=== PATIENT | female | born 1950 | race Caucasian/White ===

== ENCOUNTER 2017-09-16 12:50 | Day surgery (SDC) | payer MEDICARE, OTHER, SELFPAY ==
[2017-09-16] VITALS (7 sets, daily range): BP systolic 110–126; BP diastolic 58–79; PULSE 70–81; RESP 14–16; TEMP 36–36.9; O2SAT 92–98; BMI 35.5
--- NOTE | 2017-09-16 | PATH_ITS ---
[facility] Accession Number: [id number] . 01 Material submitted: . PART A: COLON POLYP AT 40CM PART B: COLON POLYP AT 70CM PART C: COLON POLYP AT 60CM PART D: COLON POLYP AT 65CM . 02 Diagnosis: A. Colon Polyp at 40 cm: Tubular adenoma. . B. Colon Polyp at 70 cm: Tubular adenoma. . C. Colon Polyp at 60 cm: Colonic mucosa with prominent benign lymphoid aggregate. Negative for serrated lesion, dysplasia or malignancy. . D. Colon Polyp at 65 cm: Tubular adenoma. MRV/09/18/2017 . 02 Electronically signed: . Oh Mike MD, PhD, Pathologist NPI- [id number] . 01 Gross description: . Part A: COLON POLYP AT 40CM: Received in formalin are 2 fragment(s) of fink, soft tissue measuring 0.4 x 0.3 x 0.2 cm to 0.3 x 0.3 x 0.1 cm submitted entirely in 1 cassette(s) Part B: COLON POLYP AT 70CM: Received in formalin is 1 fragment(s) of fink, soft tissue measuring 0.4 x 0.3 x 0.2 cm submitted entirely in 1 cassette(s) Part C: COLON POLYP AT 60CM: Received in formalin are 2 fragment(s) of fink, soft tissue measuring 1.1 x 0.2 x 0.1 cm to 0.5 x 0.3 x 0.1 cm submitted entirely in 1 cassette(s) Part D: COLON POLYP AT 65CM: Received in formalin is 1 fragment(s) of fink, soft tissue measuring 0.3 x 0.3 x 0.2 cm submitted entirely in 1 cassette(s) /TRC /TRC . 02 Pathologist provided ICD-10: D12.6, K63.5 . 02 CPT . 187124, 158459, [id number], [id number] Performed at: 01 [facility] [address] [id number] MD Per Choudhury MD Phone: [phone] Performed at: 02 [facility] [address] [place], [place] [id number] MD Savage Hodge MD Phone: [phone]
[2017-09-16] MEDS: SODIUM CHLORIDE 0.9% 1,000 ML 200 ML IV (13:12)
--- NOTE | 2017-09-16 14:08 | PM.HP.1 ---
History of Present Illness Date Patient Seen: 09/16/17 Time Patient Seen: 14:08 Chief complaint: colonoscopy [id number] Narrative: Katherine is a wonderful 67-year-old lady with a personal history of colon cancer arising in a tubulovillous adenoma in 2014. She had a repeat endoscopy in 2016 that did not show any regrowth of the polyp. She did not elect to undergo colectomy as there was no invasive cancer or dysplasia at the cauterized edge of the stalk. We have been performing close surveillance of this area and she is scheduled for the same today. She reports she is feeling well. 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 She denies any problems or symptoms related to the function of her GI tract. Patient History Surgical History History of cataract removal with insertion of prosthetic lens History of thyroidectomy History of tonsillectomy Status post dilation and curettage Status post knee surgery Status post laparoscopy Status post tubal ligation Family & Social History Social History: household members spouse Meds Home Medications Medication Instructions Recorded Confirmed Type acetaminophen 500 mg PO QID #0 02/17/16 History acyclovir [Zovirax] 1 liliana TP #0 02/17/16 History alendronate [Fosamax] 70 mg PO QWEEK #0 02/17/16 History avdsptmpya-iedmsuqdqxhrl-iuuo 1 cap PO PRN PRN #0 02/17/16 History calcium citrate-vitamin D3 1 tab PO #0 02/17/16 History [Citracal + D Maximum] capsaicin [Theragen] 1 liliana TOPICAL #0 02/17/16 History cholecalciferol (vitamin D3) 1 tab PO QDAY #0 02/17/16 History [Vitamin D3] hydrocodone-acetaminophen 1 tab PO Q6HP PRN #0 02/17/16 History ibuprofen 800 mg PO TIDP PRN #0 02/17/16 History lidocaine HCl 1 liliana TOPICAL #0 02/17/16 History valacyclovir 500 mg PO #0 02/17/16 History Effexor XR 375 mg PO DAILY 09/16/17 09/16/17 History alprazolam [Xanax] 0.5 mg PO 09/16/17 History clopidogrel [Plavix] 75 mg PO DAILY 09/16/17 09/16/17 History cyclosporine [Restasis] 0.5 mg EYE-BOTH DAILY 09/16/17 09/16/17 History esomeprazole magnesium [Nexium] 40 mg PO DAILY 09/16/17 09/16/17 History levothyroxine [Synthroid] 137 mcg PO DAILY 09/16/17 09/16/17 History verapamil 180 mg PO DAILY 09/16/17 09/16/17 History Allergies Allergy/AdvReac Type Severity Reaction Status Date / Time erythromycin base Allergy Mild STOMACH Unverified 07/23/17 12:32 [ERYTHROMYCIN BASE] UPSET Review of Systems Review of Systems All systems reviewed & are unremarkable except as noted in HPI and below Exam Vital Signs (past 8 hours): Vital Signs - 8 hr 09/16/17 13:13 Temperature 98.5 F Pulse Rate 81 Respiratory Rate 15 Blood Pressure 126/76 H Pulse Oximetry 98 Pulse Oximetry 98 Oxygen Delivery Method Room Air Narrative Exam Narrative: Very pleasant lady in no distress. She is blind. HEENT: Normocephalic and atraumatic. Anicteric sclera Lungs: Clear to auscultation bilaterally Heart: Regular rate and rhythm without murmur Abdomen: Soft, nontender, active bowel sounds. Extremities: Warm and well-perfused and without edema Assessment & Plan Plan: Assessment/Plan Narrative: Dorinda 67-year-old lady with a personal history of adenocarcinoma arising in a tubulovillous adenoma at 25 cm from the anal verge. We discussed once again the risks and benefits of colonoscopy and the patient expressed desire to have the procedure.
--- NOTE | 2017-09-16 14:12 | P.HP_ITS ---
History of Present Illness Date Patient Seen: 09/16/17 Time Patient Seen: 14:08 Chief complaint: colonoscopy [id number] Narrative: Katherine is a wonderful 67-year-old lady with a personal history of colon cancer arising in a tubulovillous adenoma in 2014. She had a repeat endoscopy in 2016 that did not show any regrowth of the polyp. She did not elect to undergo colectomy as there was no invasive cancer or dysplasia at the cauterized edge of the stalk. We have been performing close surveillance of this area and she is scheduled for the same today. She reports she is feeling well. 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 She denies any problems or symptoms related to the function of her GI tract. Patient History Surgical History History of cataract removal with insertion of prosthetic lens History of thyroidectomy History of tonsillectomy Status post dilation and curettage Status post knee surgery Status post laparoscopy Status post tubal ligation Family & Social History Social History: household members spouse Meds Home Medications Medication Instructions Recorded Confirmed Type acetaminophen 500 mg PO QID #0 02/17/16 History acyclovir [Zovirax] 1 liliana TP #0 02/17/16 History alendronate [Fosamax] 70 mg PO QWEEK #0 02/17/16 History esxwdhyelr-zptzuaswktpxg-soik 1 cap PO PRN PRN #0 02/17/16 History calcium citrate-vitamin D3 1 tab PO #0 02/17/16 History [Citracal + D Maximum] capsaicin [Theragen] 1 liliana TOPICAL #0 02/17/16 History cholecalciferol (vitamin D3) 1 tab PO QDAY #0 02/17/16 History [Vitamin D3] hydrocodone-acetaminophen 1 tab PO Q6HP PRN #0 02/17/16 History ibuprofen 800 mg PO TIDP PRN #0 02/17/16 History lidocaine HCl 1 liliana TOPICAL #0 02/17/16 History valacyclovir 500 mg PO #0 02/17/16 History Effexor XR 375 mg PO DAILY 09/16/17 09/16/17 History alprazolam [Xanax] 0.5 mg PO 09/16/17 History clopidogrel [Plavix] 75 mg PO DAILY 09/16/17 09/16/17 History cyclosporine [Restasis] 0.5 mg EYE-BOTH DAILY 09/16/17 09/16/17 History esomeprazole magnesium [Nexium] 40 mg PO DAILY 09/16/17 09/16/17 History levothyroxine [Synthroid] 137 mcg PO DAILY 09/16/17 09/16/17 History verapamil 180 mg PO DAILY 09/16/17 09/16/17 History Allergies Allergy/AdvReac Type Severity Reaction Status Date / Time erythromycin base Allergy Mild STOMACH Unverified 07/23/17 12:32 [ERYTHROMYCIN BASE] UPSET Review of Systems Review of Systems All systems reviewed & are unremarkable except as noted in HPI and below Exam Vital Signs (past 8 hours): Vital Signs - 8 hr 3 09/16/17 13:13 Temperature 98.5 F Pulse Rate 81 Respiratory Rate 15 Blood Pressure 126/76 H Pulse Oximetry 98 Pulse Oximetry 98 Oxygen Delivery Method Room Air Narrative Exam Narrative: Very pleasant lady in no distress. She is blind. HEENT: Normocephalic and atraumatic. Anicteric sclera Lungs: Clear to auscultation bilaterally Heart: Regular rate and rhythm without murmur Abdomen: Soft, nontender, active bowel sounds. Extremities: Warm and well-perfused and without edema Assessment & Plan Plan: Assessment/Plan Narrative: Dorinda 67-year-old lady with a personal history of adenocarcinoma arising in a tubulovillous adenoma at 25 cm from the anal verge. We discussed once again the risks and benefits of colonoscopy and the patient expressed desire to have the procedure.
--- NOTE | 2017-09-16 14:13 | SUR.OPER ---
to endo from opd via cart respirations unlabored iv patent positioned per self for procedure
--- NOTE | 2017-09-16 14:58 | PM.OP.1 ---
Operative Date/Time/Diagnoses - Date of procedure: 09/16/17 Time of procedure: 14:58 Pre-op diagnosis: Personal history of malignancy arising in a tubulovillous adenoma at 25 cm from the anal verge Personal history of other colon polyps Post-op diagnosis: same Procedure & Clinicians Procedure: Colonoscopy to the cecum with polypectomy x4 Same procedure as scheduled: Yes Indications: Last colonoscopy 2015 for surveillance of large polyp at 25 cm. Surgeon: Deidra Chaidez Click Yes if Unassisted: Yes Anesthesia Type: Sedation (Versed 11 mg; fentanyl 300 mcg) Operative Notes Findings: 1. Excellent prep 2. Multiple small sessile polyps removed with Jumbo cold forceps. Polyps were at 65 cm, 40 cm, 70 cm, and 60 cm respectively. All were less than 5 mm 3. Diverticulosis limited to the junction of the descending and sigmoid colons 4. Type 2 at 25 cm is no longer visible. Mucosa at this region and throughout the colon is normal in appearance with the exception of the 4 polyps removed. 5. Grade 1 internal hemorrhoids Closure Type: not applicable Specimen(s): other (See list) Estimated Blood Loss (mL): 5 Blood products transfused: none Procedure in detail: After obtaining informed consent, the patient was brought to the GI suite and placed in the left lateral decubitus position on the examination table. After placement of appropriate monitors, the patient was given incremental doses of Versed and Fentanyl until an appropriate level of sedation was achieved. A time out was held per SCOAP protocol. A digital rectal examination was performed and did not reveal any masses or obstructing lesions. The colonoscope was gently passed into the patient's anus and the entire colon navigated to the level of the cecum with minimal difficulty. Once in the cecum, the scope was withdrawn being sure to go before and beyond all mucosal folds and prominences and get an excellent examination. The findings are noted above. At the level of the rectal vault, the scope was retroflexed and the internal anal canal was examined. The scope was straightened and air aspirated from the colon. The instrument was removed from the patient's body and the procedure was concluded. The patient was allowed to awaken from sedation without difficulty and taken to the post-anesthesia care unit in good condition. Total sedation time 32 min Total withdrawal time 20 min Complications: none Condition: stable Disposition: PACU Plan for aftercare: 1. Discharge to home 2. Plan for next colonoscopy in 2 years due to the number and size of polyps together with the patient's history of adenocarcinoma arising in a polyp
[2017-09-16] MEDS: fentaNYL 250 MCG/5 ML INJ 300 MCG IV (15:00)
[2017-09-16] MEDS: MIDAZOLAM 5 MG/5 ML VIAL 11 MG IV (15:01)
--- NOTE | 2017-09-16 15:24 | SUR.PHASEI ---
An intoxicated like affect in PACU. Smiling and singing.
== END 2017-09-16 16:10 | disposition home or self-care (01) ==
PROVIDERS: Visit Provider Surgery
PROC: 0DJD8ZZ Inspection of Lower Intestinal Tract, Via Natural or Artificial Opening Endoscopic (ICD-10-PCS; CPT 45378; principal; 2017-09-16 14:00)
DX: K57.30 Diverticulosis of large intestine without perforation or abscess without bleeding (principal); K64.0 First degree hemorrhoids; D12.6 Benign neoplasm of colon, unspecified; K63.5 Polyp of colon
CPT/HCPCS: 45380; 88305; 99152; 99153; J2250; J3010

== ENCOUNTER → 2018-01-07 09:53 | Outpatient (CLI) | payer MEDICARE, OTHER, SELFPAY ==
--- NOTE | 2018-01-07 | DI.MRI.S_ITS ---
PROCEDURE: MR KNEE LT WO CON INDICATIONS: INTERNAL DERANGEMENT OF LEFT KNEE TECHNIQUE: Noncontrast sagittal PD fast spin echo and T2 fast spin echo with fat saturation, sagittal 3-D FLASH with fat saturation; coronal T1 spin echo and PD fast spin echo with fat saturation, and axial PD fast spin echo with fat saturation through the knee. COMPARISON: None. FINDINGS: Image quality: Excellent. Menisci: Medial meniscal tear involving the posterior horn and body with extension to the undersurface. There is mild partial extrusion of the medial meniscal body. Lateral meniscus appears intact. Cruciate ligaments: The anterior and posterior cruciate ligaments appear intact. Medial structures: The medial collateral ligament appears intact. The posterior oblique ligament, semimembranosus tendon insertions, oblique popliteal ligament, and meniscocapsular junction appear intact. Visualized portions of the pes anserinus tendons appear normal. No abnormal bursal fluid. Lateral structures: The lateral collateral ligament, long and short heads of the biceps femoris tendon appear intact. The popliteus tendon appears normal; the popliteofibular ligament appears intact. The posterosuperior and anteroinferior popliteomeniscal fascicles appear intact. The arcuate and fabellofibular ligaments appear intact, on either side of the lateral inferior geniculate artery. Iliotibial band appears normal. Anterior structures: The quadriceps and patellar tendons appear intact. There is extensive infrapatellar subcutaneous soft tissue edema Patellar alignment is normal. No femoral trochlear dysplasia or ventral trochlear prominence. No edema in the infrapatellar fat pad. Bones and cartilage: No bone marrow contusions or fractures. Within the medial compartment, the articular cartilage appears grossly intact. Within the lateral compartment, there is diffuse mild partial thickness loss of the femoral cartilage without focal defect. Within the patellofemoral compartment, there is near full thickness denudation of the patellar articular cartilage rarely over the median patellar ridge and medial facet. There is diffuse partial thickness loss of the femoral trochlear cartilage. Joint space: There is physiologic knee joint fluid. No Alfaro's cyst. IMPRESSION: Medial meniscal tear of the posterior horn and body with partial extrusion. Degenerative joint disease, most pronounced within the patellofemoral compartment as above. Extensive infrapatellar subcutaneous soft tissue edema. Dictated by: Yadiel Donahue M.D. on 01/07/2018 at 13:08 Approved by: Yadiel Donahue M.D. on 01/07/2018 at 13:19
== END ==
PROVIDERS: Visit Provider Orthopaedic Surgery
DX: S83.242A Other tear of medial meniscus, current injury, left knee, initial encounter (principal); M17.12 Unilateral primary osteoarthritis, left knee; M79.89 Other specified soft tissue disorders
CPT/HCPCS: 73721

== ENCOUNTER → 2018-01-13 14:45 | Outpatient (CLI) | payer MEDICARE, OTHER, SELFPAY | PROVIDERS: Visit Provider Orthopaedic Surgery | DX: S83.242A Other tear of medial meniscus, current injury, left knee, initial encounter (principal); Z01.818 Encounter for other preprocedural examination | CPT/HCPCS: 93005 ==

== ENCOUNTER 2018-01-26 14:16 | Day surgery (SDC) | payer MEDICARE, OTHER, SELFPAY ==
[2018-01-21 13:16] VITALS: BMI 33.8
[2018-01-26] VITALS (9 sets, daily range): BP systolic 113–143; BP diastolic 56–82; PULSE 70–96; RESP 12–16; TEMP 36.2–36.6; O2SAT 88–98; BMI 34.9
--- NOTE | 2018-01-26 14:55 | PM.PREOP ---
Pre-operative Note Interval Note Pre-op Check: Yes History & Physical Reviewed by Physician Changes: No
[2018-01-26] MEDS: LACTATED RINGERS 1,000 ML 42 ML IV (15:08)
--- NOTE | 2018-01-26 15:35 | SUR.OPER ---
Supine on padded OR bed, head on pillow, arms secured on padded arm boards at <90 degrees abduction, legs uncrossed, safety belt at abdomen, tape over blanket over right lower leg. Left lower leg with lateral stress post at thigh and under control of surgeon
[2018-01-26] MEDS: BUPIVACAINE 0.5% W/ EPI (PF) VIAL 30 ML INJ (15:42)
--- NOTE | 2018-01-26 16:01 | PM.OP.1 ---
Operative Date/Time/Diagnoses Date of procedure: 01/26/18 Time of procedure: 16:01 Pre-op diagnosis: Medial meniscus tear left knee Post-op diagnosis: same Procedure & Clinicians Procedure: Left knee arthroscopy with partial medial and lateral meniscectomy (CPT code 57622) and partial synovectomy/excision of plica (CPT code 83413) Same procedure as scheduled: Yes Indications: 67-year-old female with left knee pain consistent with internal derangement as suggested by history and consistent with physical exam as well as MRI findings. Discussed nature condition, differential diagnosis, potential treatment options, risks, and benefits. Patient elected proceed with arthroscopy and gives informed consent. Surgeon: Thomas Fajardo Click Yes if Unassisted: Yes Anesthesia Type: General Operative Notes Findings: Grade 2-3 chondromalacic changes of the patellar and trochlear surfaces without specific chondral lesion. Hypertrophic synovial plica in the medial suprapatellar articulation. Femoral and tibial articular surfaces are relatively normal with minimal softening. Small flap tear of the posterior horn of the lateral meniscus and complex tear of the posterior horn of the medial meniscus. Closure Type: primary Specimen(s): none sent Estimated Blood Loss (mL): 0 Procedure in detail: Patient brought to the operating room and placed supine on the operating table. After satisfactory induction of a general anesthetic, the left lower extremity is prepped and draped in the usual sterile fashion. Medial and lateral parapatellar portals created after infiltrating with Marcaine and epinephrine. Arthroscope introduced through the lateral parapatellar portal and arthroscopic examination was performed with the above-noted findings. Partial medial and lateral meniscectomies performed using combination basket forceps and shaver back to smooth and stable rim. Hypertrophic synovial plica and debrided with the shaver back to normal-appearing synovium. Knee was then irrigated and drained. The wounds were closed with Steri-Strips. The knee was then infiltrated with Marcaine. Sterile dressings applied, as the anesthetic terminated, and the patient was taken to postanesthetic recovery in satisfactory condition. Complications: none Condition: stable Disposition: PACU Plan for aftercare: Routine postoperative care and discharge home when stable. Follow up in orthopedic clinic in 2 weeks. Patient may be weight-bearing as tolerated.
--- NOTE | 2018-01-26 16:07 | P.OP_ITS ---
Operative Date/Time/Diagnoses Date of procedure: 01/26/18 Time of procedure: 16:01 Pre-op diagnosis: Medial meniscus tear left knee Post-op diagnosis: same Procedure & Clinicians Procedure: Left knee arthroscopy with partial medial and lateral meniscectomy ( CPT code 01054) and partial synovectomy/excision of plica (CPT code 18465) Same procedure as scheduled: Yes Indications: 67-year-old female with left knee pain consistent with internal derangement as suggested by history and consistent with physical exam as well as MRI findings. Discussed nature condition, differential diagnosis, potential treatment options, risks, and benefits. Patient elected proceed with arthroscopy and gives informed consent. Surgeon: Thomas Fajardo Click Yes if Unassisted: Yes Anesthesia Type: General Operative Notes Findings: Grade 2-3 chondromalacic changes of the patellar and trochlear surfaces without specific chondral lesion. Hypertrophic synovial plica in the medial suprapatellar articulation. Femoral and tibial articular surfaces are relatively normal with minimal softening. Small flap tear of the posterior horn of the lateral meniscus and complex tear of the posterior horn of the medial meniscus. Closure Type: primary Specimen(s): none sent Estimated Blood Loss (mL): 0 Procedure in detail: Patient brought to the operating room and placed supine on the operating table. After satisfactory induction of a general anesthetic, the left lower extremity is prepped and draped in the usual sterile fashion. Medial and lateral parapatellar portals created after infiltrating with Marcaine and epinephrine. Arthroscope introduced through the lateral parapatellar portal and arthroscopic examination was performed with the above-noted findings. Partial medial and lateral meniscectomies performed using combination basket forceps and shaver back to smooth and stable rim. Hypertrophic synovial plica and debrided with the shaver back to normal-appearing synovium. Knee was then irrigated and drained. The wounds were closed with Steri-Strips. The knee was then infiltrated with Marcaine. Sterile dressings applied, as the anesthetic terminated, and the patient was taken to postanesthetic recovery in satisfactory condition. Complications: none Condition: stable Disposition: PACU Plan for aftercare: Routine postoperative care and discharge home when stable. Follow up in orthopedic clinic in 2 weeks. Patient may be weight-bearing as tolerated.
--- NOTE | 2018-01-26 16:37 | SUR.PHASEII ---
Dr Messina called re: c/o chest tightness. Touching/pushing on chest increases sensation. Sats remain in 92-95% range. 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 12 Lead ordered to be reviewed versus most recent [address] Huitron will read.
--- NOTE | 2018-01-26 16:41 | SUR.PHASEII ---
Addendum to previous note: No pain reported to knee when asked.
--- NOTE | 2018-01-26 17:12 | SUR.PHASEII ---
Dr Weinstein has reviewed the old (01/13/18) and current 12 lead EKG and has given order that it is okay to discharge home. Patient is desiring such. is Very supportive of care.
== END 2018-01-26 17:25 | disposition home or self-care (01) ==
PROVIDERS: PCP Internal Medicine; Visit Provider Orthopaedic Surgery
PROC: (CPT 29870; principal; 2018-01-26 15:45)
DX: S83.232A Complex tear of medial meniscus, current injury, left knee, initial encounter (principal); S83.282A Other tear of lateral meniscus, current injury, left knee, initial encounter; M67.52 Plica syndrome, left knee; M17.12 Unilateral primary osteoarthritis, left knee; J45.909 Unspecified asthma, uncomplicated; R00.2 Palpitations; Z86.73 Personal history of transient ischemic attack (TIA), and cerebral infarction without residual deficits; Z86.718 Personal history of other venous thrombosis and embolism; E66.9 Obesity, unspecified; Z68.34 Body mass index [BMI] 34.0-34.9, adult; H54.8 Legal blindness, as defined in USA; E78.00 Pure hypercholesterolemia, unspecified; E03.9 Hypothyroidism, unspecified; I67.89 Other cerebrovascular disease; F32.9 Major depressive disorder, single episode, unspecified; R00.1 Bradycardia, unspecified; M22.42 Chondromalacia patellae, left knee
CPT/HCPCS: 29880; 93005; J1100; J2250; J2405; J2704; J3010

== ENCOUNTER 2018-01-31 09:47 | Emergency (ER) | payer MEDICARE, OTHER, SELFPAY ==
[2018-01-31] VITALS (7 sets, daily range): BP systolic 101–127; BP diastolic 58–64; PULSE 64–75; RESP 11–16; TEMP 36.7–36.9; O2SAT 95–100
--- NOTE | 2018-01-31 10:06 | ED_ITS ---
HPI - SOB/Dyspnea General Chief Complaint: Shortness of Breath/Dyspnea Stated Complaint: SWOLLEN RIB/HARD TO BREATHE Time Seen by Provider: 01/31/18 10:02 Source: patient and family Mode of arrival: ambulatory Limitations: no limitations History of Present Illness 67-year-old female here for evaluation of left-sided chest pain. Patient states that it started last evening. States is located under left breast. States it gets worse with movement and palpation taking big deep breath. No trauma. She states she does feel like there is a lump over the area. She recently had a left knee arthroscopy. She does have pain medication at home for this. No fevers. She does have a history of blood clots. Related Data Home Medications Medication Instructions Recorded Confirmed acetaminophen 500 mg PO QID #0 02/17/16 acyclovir [Zovirax] 1 liliana TP #0 02/17/16 alendronate [Fosamax] 70 mg PO QWEEK #0 02/17/16 [id number] 1 cap PO PRN PRN #0 02/17/16 calcium citrate-vitamin D3 1 tab PO #0 02/17/16 [Citracal + D Maximum] capsaicin [Theragen] 1 liliana TOPICAL #0 02/17/16 hydrocodone-acetaminophen 1 tab PO Q6HP PRN #0 02/17/16 01/21/18 ibuprofen 800 mg PO TIDP PRN #0 02/17/16 lidocaine HCl 1 liliana TOPICAL #0 02/17/16 valacyclovir 500 mg PO #0 02/17/16 alprazolam [Xanax] 0.5 mg PO BID 09/16/17 01/21/18 clopidogrel [Plavix] 75 mg PO DAILY 09/16/17 01/26/18 cyclosporine [Restasis] 1 drp EYE-BOTH DAILY 09/16/17 01/21/18 esomeprazole magnesium [Nexium] 40 mg PO DAILY 09/16/17 01/21/18 levothyroxine [Synthroid] 137 mcg PO DAILY 09/16/17 01/21/18 verapamil 180 mg PO DAILY 09/16/17 01/21/18 albuterol sulfate 2 puff INHALATION Q4H PRN 01/21/18 01/21/18 atorvastatin 40 mg PO DAILY 01/21/18 01/21/18 cholecalciferol (vitamin D3) 2,000 units 01/21/18 [Vitamin D3] clotrimazole-betamethasone 1 applic TOPICAL BID 01/21/18 01/21/18 doxycycline hyclate 100 mg PO Q12H 01/21/18 01/21/18 nystatin 01/21/18 omeprazole 40 mg PO DAILY 01/21/18 01/21/18 terbinafine HCl 250 mg PO DAILY 01/21/18 01/21/18 venlafaxine 37.5 mg PO DAILY 01/21/18 01/21/18 Previous Rx's Medication Instructions Recorded hydrocodone-acetaminophen [Vicodin] 1 tab PO Q4-6H PRN #30 tab 01/26/18 Allergies Allergy/AdvReac Type Severity Reaction Status Date / Time erythromycin base Allergy Mild STOMACH Verified 01/26/18 15:12 [ERYTHROMYCIN BASE] UPSET doxycycline AdvReac Unknown Dizziness, Verified 01/21/18 13:27 headache levofloxacin AdvReac Unknown Tendonitis Verified 01/21/18 13:27 Review of Systems Constitutional Denies fatigue, Denies fever(s) and Denies headache(s) ENT Ears, Nose, Mouth, and Throat: Denies dizziness and Denies headache(s) Cardiovascular Reports chest pain, Denies edema, Denies irregular heart rhythm and Denies palpitations Respiratory Denies cough Comments: Pain in the left chest with taking deep breaths Gastrointestinal Gastrointestinal: Denies abdominal pain, Denies nausea and Denies vomiting Genitourinary Denies dysuria Integumentary/Breasts Denies lesions and Denies rash Neurologic Denies confusion, Denies dizziness and Denies headache(s) Psychiatric Denies confusion Endocrine Denies fatigue and Denies palpitations Hematologic/Lymphatic Denies easy bleeding and Denies easy bruising FOR[facility], LAT[facility] Medical History Acute medial meniscus tear of left knee (Acute) Age-related osteoporosis without current pathological fracture (Acute) Anxiety disorder, unspecified (Acute) Asthma (Acute) Brain tumor (Acute) Candidiasis, unspecified (Acute) Cellulitis of groin (Acute ~09/2016) Chest pressure (Acute) DVT of axillary vein, acute bilateral (Acute ~2013) Dry eye syndrome of unspecified lacrimal gland (Acute) Essential hypertension (Acute) Failed total hip arthroplasty (Acute) GERD with esophagitis (Acute) Glaucoma, right eye (Acute) Herpes simplex (Acute) History of chest pain (Acute) History of colitis (Acute) History of concussion (Acute) Hypertension (Acute) Hypothyroidism (Acute) Keratoconjunctivitis sicca not specified as Sjogren's (Acute) Knee pain, left (Acute) Legal blindness, as defined in [place] (Acute) Major depressive disorder, single episode (Acute) Malignant neoplasm of colon, unspecified (Acute) Migraine with aura, not intractable, without status migrainosus (Acute) Mitral valve prolapse (Acute) Obesity (Acute) Osteoarthritis (Acute) Osteopenia (Acute) Other cerebrovascular disease (Acute) Other pneumonia, unspecified organism (Acute) Other specified disorders of eustachian tube, bilateral (Acute) Palpitations (Acute) Poor balance (Acute) Retinal tear of left eye (Acute) Rotator cuff tear arthropathy of left shoulder (Acute) Sinus sissy-tachy syndrome (Acute) Stroke (Acute ~07/13/14) Tinea cruris (Acute) Viral warts, unspecified (Acute) Surgical History History of colonoscopy (Acute) History of foot surgery (Acute) S/P right knee arthroscopy (Acute) History of cataract removal with insertion of prosthetic lens History of thyroidectomy History of tonsillectomy Status post dilation and curettage Status post knee surgery Status post laparoscopy Status post tubal ligation Social History household members: spouse Exam Initial Vital Signs Initial Vital Signs: Vital Signs Temperature 98.5 F 01/31/18 10:13 Pulse Rate 75 01/31/18 10:13 Respiratory Rate 16 01/31/18 10:13 Blood Pressure 127/64 01/31/18 10:13 Pulse Oximetry 100 01/31/18 10:13 Const General: cooperative, comfortable, well developed, well groomed and No acute distress Orientation: alert, awake and oriented x3 HENMT Head: normal to inspection and normocephalic Chest Other: Tenderness to palpation left anterior chest wall under the left breast. Resp Effort & Inspection: normal respiratory effort Auscultation: clear to auscultation bilaterally Cardio Rate: regular rate Rhythm: regular rhythm Pulses: radial pulses present GI Palpation: soft, No firm and No tender Skin Lesions: no lesions Rashes: no rashes Neuro General: alert, awake and oriented x3 Extrem General: normal to inspection and capillary refill normal Course Orders Ordered: ED Orders 01/31/18 10:50 CT angio chest PE protocol Stat 01/31/18 11:00 EKG-12 Lead Stat 01/31/18 11:30 B Type Natriuretic Peptide Stat Basic Metabolic Panel Stat Complete Blood Count AUTO DIFF Stat Partial Thromboplastin Time Stat Prothrombin Time INR Stat Troponin I Stat Discontinued Medications Sodium Chloride (Normal Saline 0.9%) 1,000 mls @ 1,000 mls/hr IV BOLUS ONE Stop: 01/31/18 11:48 Last Infusion: 01/31/18 14:10 Dose: 0 mls/hr Admin: 01/31/18 11:31 Dose: 1,000 mls/hr Vital Signs - 8 hr 01/31/18 10:13 01/31/18 11:30 01/31/18 12:00 Temperature 98.5 F Pulse Rate 75 66 Respiratory Rate 16 13 Blood Pressure 127/64 Blood Pressure [Left Arm] 115/62 119/64 Pulse Oximetry 100 95 01/31/18 13:01 01/31/18 14:00 Temperature Pulse Rate 67 64 Respiratory Rate 15 11 L Blood Pressure Blood Pressure [Left Arm] 123/60 111/58 L Pulse Oximetry 99 98 MDM - SOB/Dyspnea Lab Data Attestation: I reviewed the patient's lab results. Result diagrams: 01/31/18 11:30 01/31/18 11:30 Lab Results 01/31/18 01/31/18 01/31/18 Range/Units 11:30 11:30 11:30 WBC 7.4 (4.5-11.0) X10^3/uL RBC 4.92 (4.0-5.2) X10^6/uL Hgb 14.7 (12.0-16.0) g/dL Hct 43.5 (36-46) % MCV 88.2 (80-100) fL MCH 29.9 (26-34) PG MCHC 33.9 (30-36) % RDW 13.4 (11.6-14.8) % Plt Count 257 (150-400) X10^3/uL Neut % (Auto) 67.6 (50-75) % Lymph % (Auto) 21.5 L (25-40) % Gove % (Auto) 8.3 (3-14) % Eos % (Auto) 1.6 L (2-4) % Baso % (Auto) 1.0 (0-2) % Neut # (Auto) 5000 (4404-6354) /uL PT 10.6 (10.1-12.7) SECONDS INR 1.0 (0.9-1.3) APTT 28 (26.4-36.2) SECONDS Sodium 144 (137-145) mmol/L Potassium 4.4 (3.4-5.1) mmol/L Chloride 103 (98-107) mmol/L Carbon Dioxide 31 (22-32) mmol/L BUN 21 H (7-17) mg/dL Creatinine 0.70 (0.52-1.04) mg/dL Estimated GFR > 60.0 (>60) mL/min BUN/Creatinine Ratio 30.0 H (6-22) Glucose 85 (80-110) mg/dL Calcium 9.3 (8.4-10.2) mg/dL Troponin I < 0.012 (0.01-0.034) ng/mL B-Natriuretic Peptide < 100.0 (<100) Imaging Data CT scan - chest: Radiologist's impression: [place] [address] CT Scan Report Signed Patient: Katherine Lao GAILR#: [id number] : 2Acct:[id number] Age/Sex: 67 / FDate of Service: 01/31/18 Loc: ED Accession Number: [id number] Procedure: CT angio chest PE protocol Ordering Provider: Luis Quintero D.O. PROCEDURE: CT ANGIO CHEST PE PROTOCOL INDICATIONS: Chest pain, shortness of breath, hx of PE TECHNIQUE: After the administration of intravenous contrast, 2 mm thick sections acquired from the pulmonary apices to the posterior costophrenic angles. 3-dimensional maximum intensity projection (MIP) coronal and sagittal reformats were then acquired through the thorax. For radiation dose reduction, the following was used: automated exposure control, adjustment of mA and/or kV according to patient size. COMPARISON: [facility], , CHEST 1VW (PORTABLE), 07/16/2014, 16:47. FINDINGS: Image quality: Excellent. Pulmonary arteries: Pulmonary arteries are normal in size, and demonstrate no intraluminal filling defects to suggest central pulmonary embolism. Lungs and pleura: Lungs are clear. No pleural effusions or pneumothorax. Central and peripheral airways are patent. Mediastinum: Heart size is normal, without pericardial effusion. No mediastinal or hilar adenopathy. Thoracic aorta is normal in caliber and enhancement. Esophagus is normal in caliber, without hiatal hernia. Bones and chest wall: No suspicious bony lesions. Ribs and thoracic spine appear intact throughout. Thyroid gland is unremarkable. No axillary or supraclavicular adenopathy. Abdomen: Visualized upper abdominal solid organs appear normal in the early arterial phase of enhancement. IMPRESSION: 1. No pulmonary embolism. Lungs are clear. Dictated by: Cadence Layton M.D. on 01/31/2018 at 14:01 Approved by: Cadence Layton M.D. on 01/31/2018 at 14:04 ECG Data Attestation: I personally reviewed and interpreted this ECG as follows: Prior ECG tracings: available for review Interpretation: Sinus rhythm Ventricular rate is 69 Left axis deviation Normal QRS Normal QTC No ST T wave changes Comparison EKG dated 01/26/2018 Unchanged MDM Narrative Medical decision making narrative: Patient with reproducible left-sided anterior chest wall pain. No masses were felt. No rashes were seen. CT scan was negative for rib fractures or pulmonary embolism. This was reproducible. Low suspicion for ACS. I did discuss this with the patient. Discussed that if she has a rash developed over the next couple days she does need to be re- evaluated for potentially zoster. She and her both expressed understanding and agreement plan. Discharge Plan Departure Patient Disposition: Home Clinical Impression: Acute chest wall pain Instructions: DI for Atypical Chest Pain Activity Restrictions/Additional Instructions: No blood clot was seen on the CT scan today. Take the pain medication at home like we discussed in order to take big deep breaths. If you do see a rash developed over the next couple days you do need to be re-evaluated. Otherwise return to the emergency department for any new or worsening symptoms Prescriptions: No Action acetaminophen 500 MG tablet 500 mg PO QID Qty: 0 RF: 0 [id number]-[id number]-[id number] 1 EACH capsule 1 cap PO PRN PRNQty: 0 RF: 0 alendronate [Fosamax] 70 MG tablet 70 mg PO QWEEK Qty: 0 RF: 0 hydrocodone-acetaminophen 10 MG/325 MG tablet 1 tab PO Q6HP PRN (Reason: Pain) Qty: 0 RF: 0 capsaicin [Theragen] 0.025 % cream 1 liliana Topical Qty: 0 RF: 0 calcium citrate-vitamin D3 [Citracal + D Maximum] 1,500 MG/250 IU tablet 1 tab PO Qty: 0 RF: 0 ibuprofen 800 MG tablet 800 mg PO TIDP PRN (Reason: Pain) Qty: 0 RF: 0 lidocaine HCl 30 ML jelly 1 liliana Topical Qty: 0 RF: 0 valacyclovir 500 MG tablet 500 mg PO Qty: 0 RF: 0 acyclovir [Zovirax] 5 % cream 1 liliana TP Qty: 0 RF: 0 levothyroxine [Synthroid] 137 mcg Tablet 137 mcg PO DAILY RF: 0 verapamil 180 mg Tablet Extended Release 180 mg PO DAILY RF: 0 clopidogrel [Plavix] 75 mg Tablet 75 mg PO DAILY RF: 0 alprazolam [Xanax] 0.5 mg Tablet 0.5 mg PO BID RF: 0 esomeprazole magnesium [Nexium] 40 mg Capsule,Delayed Release(Dr/Ec) 40 mg PO DAILY RF: 0 cyclosporine [Restasis] 0.05 % Dropperette 1 drp EYE-BOTH DAILY RF: 0 atorvastatin 40 mg Tablet 40 mg PO DAILY RF: 0 venlafaxine 37.5 mg Capsule,Extended Release 24hr 37.5 mg PO DAILY RF: 0 doxycycline hyclate 100 mg Capsule 100 mg PO Q12H RF: 0 omeprazole 40 mg Capsule,Delayed Release(Dr/Ec) 40 mg PO DAILY RF: 0 terbinafine HCl 250 mg Tablet 250 mg PO DAILY RF: 0 clotrimazole-betamethasone 1-0.05 % Cream 1 applic TOPICAL BID RF: 0 albuterol sulfate 90 mcg/actuation Hfa Aerosol Inhaler 2 puff INHALATION Q4H PRN (Reason: Wheezing) RF: 0 nystatin 500,000 unit Tablet RF: 0 cholecalciferol (vitamin D3) [Vitamin D3] 2,000 unit Capsule 2,000 units RF: 0 hydrocodone-acetaminophen [Vicodin] 5-300 mg tablet 1 tab PO Q4-6H PRN (Reason: pain) Qty: 30 RF: 0
--- NOTE | 2018-01-31 10:50 | DI.CT.S_ITS ---
PROCEDURE: CT ANGIO CHEST PE PROTOCOL INDICATIONS: Chest pain, shortness of breath, hx of PE TECHNIQUE: After the administration of intravenous contrast, 2 mm thick sections acquired from the pulmonary apices to the posterior costophrenic angles. 3-dimensional maximum intensity projection (MIP) coronal and sagittal reformats were then acquired through the thorax. For radiation dose reduction, the following was used: automated exposure control, adjustment of mA and/or kV according to patient size. COMPARISON: [facility], , CHEST 1VW (PORTABLE), 07/16/2014, 16:47. FINDINGS: Image quality: Excellent. Pulmonary arteries: Pulmonary arteries are normal in size, and demonstrate no intraluminal filling defects to suggest central pulmonary embolism. Lungs and pleura: Lungs are clear. No pleural effusions or pneumothorax. Central and peripheral airways are patent. Mediastinum: Heart size is normal, without pericardial effusion. No mediastinal or hilar adenopathy. Thoracic aorta is normal in caliber and enhancement. Esophagus is normal in caliber, without hiatal hernia. Bones and chest wall: No suspicious bony lesions. Ribs and thoracic spine appear intact throughout. Thyroid gland is unremarkable. No axillary or supraclavicular adenopathy. Abdomen: Visualized upper abdominal solid organs appear normal in the early arterial phase of enhancement. IMPRESSION: 1. No pulmonary embolism. Lungs are clear. Dictated by: Cadence Layton M.D. on 01/31/2018 at 14:01 Approved by: Cadence Layton M.D. on 01/31/2018 at 14:04
[2018-01-31] MEDS: SODIUM CHLORIDE 0.9% 1,000 ML 1000 ML IV (11:31)
[2018-01-31 11:37] LABS: Add Manual Diff / Slide Review NO; Eosinophils Percent Auto 1.6 % (2-4); Hematocrit 43.5 % (36-46); Hemoglobin 14.7 g/dL (12.0-16.0); Lymphocytes Percent Auto 21.5 % (25-40); Mean Corpuscular HGB Conc 33.9 % (30-36); Mean Corpuscular Hemoglobin 29.9 PG (26-34); Mean Corpuscular Volume 88.2 fL (80-100); Monocytes Percent Auto 8.3 % (3-14); Neutrophils Absolute Auto 5000 /uL (3000-5900); Neutrophils Percent Auto 67.6 % (50-75); Platelet Count 257 X10^3/uL (150-400); Red Blood Cell Count 4.92 X10^6/uL (4.0-5.2); Red Cell Distribution Width 13.4 % (11.6-14.8); White Blood Cell Count 7.4 X10^3/uL (4.5-11.0)
--- NOTE | 2018-01-31 11:42 | PC.NURSE ---
Denies CP, and cough. Pt had surgery on her knee and has been moving around the house. At midnight awoke with difficulty breathing.
[2018-01-31 11:46] LABS: Prothrombin Time 10.6 SECONDS (10.1-12.7)
[2018-01-31 11:49] LABS: PTT Partial Thromboplastin Tim 28 SECONDS (26.4-36.2)
[2018-01-31 11:50] LABS: Blood Urea Nitrogen 21 mg/dL (7-17); Calcium 9.3 mg/dL (8.4-10.2); Carbon Dioxide 31 mmol/L (22-32); Chloride 103 mmol/L (98-107); Estimated Glomerular Filt Rate > 60.0 mL/min (>60); Glucose 85 mg/dL (80-110); HEMOLYSIS 21 (0-50); Potassium 4.4 mmol/L (3.4-5.1); Sodium 144 mmol/L (137-145)
[2018-01-31 11:54] LABS: B Type Natriuretic Peptide < 100.0 (<100)
[2018-01-31 12:05] LABS: Troponin I < 0.012 ng/mL (0.01-0.034)
== END 2018-01-31 15:15 | disposition home or self-care (01) ==
PROVIDERS: Emergency Provider Emergency Medicine; PCP Internal Medicine
DX: R07.89 Other chest pain (principal)
CPT/HCPCS: 36591; 71275; 80048; 83880; 84484; 85025; 85610; 85730; 93005; 93010; 96360; 96361; 99283; 99285

== ENCOUNTER 2018-03-19 08:15 | Outpatient (RCR) | payer MEDICARE, OTHER, SELFPAY ==
--- NOTE | 2018-02-16 10:30 | PT.OIE ---
Current Diagnoses Stiffness of left knee, not elsewhere classified (02/16/18) Other abnormalities of gait and mobility (02/16/18) Weakness (02/16/18) Other tear of medial meniscus, current injury, left knee, subsequent encounter (02/16/18) Past Medical History (Last Reviewed 01/31/18 @ 15:02 by Luis Quintero DO) Acute medial meniscus tear of left knee (Acute) Age-related osteoporosis without current pathological fracture (Acute) Anxiety disorder, unspecified (Acute) Asthma (Acute) Brain tumor (Acute) Candidiasis, unspecified (Acute) Cellulitis of groin (Acute ~09/2016) Chest pressure (Acute) DVT of axillary vein, acute bilateral (Acute ~2013) Dry eye syndrome of unspecified lacrimal gland (Acute) Essential hypertension (Acute) Failed total hip arthroplasty (Acute) GERD with esophagitis (Acute) Glaucoma, right eye (Acute) Herpes simplex (Acute) History of chest pain (Acute) History of colitis (Acute) History of concussion (Acute) Hypertension (Acute) Hypothyroidism (Acute) Keratoconjunctivitis sicca not specified as Sjogren's (Acute) Knee pain, left (Acute) Legal blindness, as defined in [place] (Acute) Major depressive disorder, single episode (Acute) Malignant neoplasm of colon, unspecified (Acute) Migraine with aura, not intractable, without status migrainosus (Acute) Mitral valve prolapse (Acute) Obesity (Acute) Osteoarthritis (Acute) Osteopenia (Acute) Other cerebrovascular disease (Acute) Other pneumonia, unspecified organism (Acute) Other specified disorders of eustachian tube, bilateral (Acute) Palpitations (Acute) Poor balance (Acute) Retinal tear of left eye (Acute) Rotator cuff tear arthropathy of left shoulder (Acute) Sinus sissy-tachy syndrome (Acute) Stroke (Acute ~07/13/14) Tinea cruris (Acute) Viral warts, unspecified (Acute) Past Surgical History (Last Reviewed 01/31/18 @ 15:02 by Luis Quintero DO) History of colonoscopy (Acute) History of foot surgery (Acute) S/P right knee arthroscopy (Acute) History of cataract removal with insertion of prosthetic lens History of thyroidectomy History of tonsillectomy Status post dilation and curettage Status post knee surgery Status post laparoscopy Status post tubal ligation Provider Visit Care Team Role Provider Type Mazin Gunter MD Primary Care Provider Physician Specialty: Internal Medicine Address: [address] [place] [address], [id number] Email: Thomas Fajardo MD Attending Provider Physician Specialty: Orthopedic Surgery Address: [address] [place] [address], [id number] Email: [email or web address] [facility] Initial Evaluation PT-OP-A Visit Information Start: 02/17/18 17:02 Freq: Status: Active Protocol: Document 02/16/18 09:45 DCW (Rec: 02/17/18 17:43 DCW [id number]) Out-Patient Physical Therapy Visit Information Visit Information Visit Type Initial Evaluation Visit Start Time 09:45 Visit Stop Time 10:30 Total Visit Minutes 45 Visit Number 1 Number of ARBITRATOR Visits 0 Evaluation Information Evaluation Date 02/16/18 PT-OP-B Current Condition Start: 02/17/18 17:02 Freq: Status: Active Protocol: Document 02/16/18 09:45 DCW (Rec: 02/17/18 17:43 DCW [id number]) Current Condition History of Current Condition Onset Date 21 Days post-op Current Complaints Left knee pain, stiffness, gait difficulty s/p partial L meniscectomy History of Current Condition Pt is a 67 year old female presenting 21 days s/p L medial and lateral partial meniscectomies. 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 At that time, she felt something in her knee rip, and began suffering from pain, swelling, and was also experiencing her knee locking up. An MRI reviealed a meniscus tear, and pt had her meniscectomy on 01/26/18. Pt reports that since surgery, she has been stiff, especially when weight-bearing, and she prefers to wear a brace in public for support, however notes that she knowns it is not the best idea, because she 'll get weaker. Additionally, pt suffers from a substantial visual impairment, and uses a probing cane at baseling, and has difficulty using both that and a SPC for support. Prior Treatments and Tests partial L medial and lateral meniscectomies Treatment Goals Patient/Caregiver Goals Pt wants to walk normally, and to be able to walk along the streets in town on her own without a fear of falling. Additionally, pt previously enjoyed swimming at the [facility], but is unable to go up or down the ladder currently due to her knee. Prior Functional Status Baseline Function- ADL's Modified Independent Baseline Function- Mobility Modified Independent Baseline Function- Gait Probing cane Current Functional Impairments (Reported) Functional Limitations- ADL's Pt unable to don/doff shoe on left foot Functional Limitations- Mobility/Gait Pt has increased pain and symptoms on stairs, using hands to crawl up them when at home. In public, pt reports that she goes sideways up stairs so she can use both hands on the same railing for support. Functional Limitations- Recreation/ Unable to climb up/down ladder Hobbies at [facility] pool, unable to go line-dancing PT-OP-C Subjective Start: 02/17/18 17:02 Freq: Status: Active Protocol: Document 02/16/18 09:45 DCW (Rec: 02/17/18 17:43 DCW [id number]) OP-PT Subjective Patient Comments Patient Comments I don't like looking helpless or vulnerable. Patient Questionnaires Other Questionnaire Name and Score Due to time constraints and visual impairment, pt opted to take paperwork home with her to fill out with her , and will return for her next visit with subjective questionaire, pain grid, and PMH PT-OP-D Balance Start: 02/17/18 17:02 Freq: Status: Active Protocol: Document 02/16/18 09:45 DCW (Rec: 02/17/18 17:43 DCW [id number]) OP-PT Balance Assessment Sitting Balance Static Sitting Balance Ability Normal Dynamic Sitting Balance Ability Normal Standing Balance Static Standing Balance Ability Fair Dynamic Standing Balance Ability Poor Guzmán Fall Scale Copyright Permission Ramirez REYNOLDS, Ramirez RM, [place]. Development of a scale to identify the fall- prone patient. Can J Aging 1989;8;366-7. Emily Guzmán (2009). Preventing patient falls. (2nd ed). [place]: [place]. PT-OP-F Manual Assessment Start: 02/17/18 17:02 Freq: Status: Active Protocol: Document 02/16/18 09:45 DCW (Rec: 02/17/18 17:43 DCW [id number]) Manual Assessments Joint Mobility Assessment Joint Mobility Assessment Immobility throughout left knee joint, mild joint effusion present. PT-OP-G Mobility & Gait Start: 02/17/18 17:02 Freq: Status: Active Protocol: Document 02/16/18 09:45 DCW (Rec: 02/17/18 17:43 DCW [id number]) OP Gait Assessment Gait Gait Assistance Required: Contact Guard Assist Distance (Feet) 40 Able to Maintain Weight Bearing Status Yes During Gait Assistive Devices Assistive Device None Orthotic/Prosthetic Devices or Brace: No Gait Deviations General Gait Pattern Antalgic Decreased Stride Length Decreased Feet Clearance Flexed Trunk Step-to Gait Factors Limiting Gait Function Factors Limiting Gait Function Decreased Strength Limited Range of Motion Pain Poor Balance Comments Gait Comments Pt gait presented with a slow, staggering/halting gait pattern with shortened right stride length to decrease stance time on left foot. Stair Climbing Evaluation Evaluation Level of Assist On Stairs Contact Guard Assistance Devices Stair Climbing Assistive Devices Left Railing Technique/Endurance Stair Climbing Direction Ascend and Descend Stair Climbing Technique Step to Step Number of Steps Climbed 3 Stair Climbing Set # Repetitions (reps) 1 Comments Stair Climbing Comments Pt uses both hands on left railing, ascending/descending sideways PT-OP-K Range of Motion Start: 02/17/18 17:02 Freq: Status: Active Protocol: Document 02/16/18 09:45 DCW (Rec: 02/17/18 17:43 DCW [id number]) Knee Goniometric Range of Motion Knee Measured in Degrees Right Flexion Active (degrees) 123 Extension Active (degrees) 0 Left Knee ROM WFL No Patient Position Supine Flexion Active (degrees) 82 Extension Active (degrees) 13 PT-OP-M Strength Start: 02/17/18 17:02 Freq: Status: Active Protocol: Document 02/16/18 09:45 DCW (Rec: 02/17/18 17:43 DCW [id number]) Knee Strength Knee Manual Muscle Testing Right Flexion (S2) 4 Good Extension (L3) 4+ Good+ Left Flexion (S2) 4- Good- Extension (L3) 3+ Fair+ PT-OP-Q Treatments Start: 02/17/18 17:02 Freq: Status: Active Protocol: Document 02/16/18 09:45 DCW (Rec: 02/17/18 17:43 [facility] [id number]) Therapeutic Exercises Supine Exercises Straight Leg Raise Supine Exercise Name SLR Side left Short Arc Quad Supine Exercise Name SAQ Side left Quad Sets Supine Exercise Name QS Side left Heel Slides Supine Exercise Name Heel Slides Side left PT-OP-T Assessment and Plan Start: 02/17/18 17:02 Freq: Status: Active Protocol: Document 02/16/18 09:45 DCW (Rec: 02/17/18 17:43 [facility] [id number]) Physical Therapy Assessment Rehab Potential Rehabilitation Potential Good Evaluation Complexity Number of Personal Factors/Comorbidities 3 or More Number of Body Systems Impaired 3 Clinical Presentation at Evaluation Unstable Impairments Impairments Activity Tolerance Functional Mobility Gait Pain ROM Strength Tone Goals Six Impairment Stairs Short Term Goal (STG) Pt to ascend and descend stairs in a step-to gait pattern facing in the direction of movement with the use of one railing. STG Duration 03/18/18 Five Impairment Gait Short Term Goal (STG) Pt to ambulate 200' with no antalgic gait STG Duration 03/18/18 [place] Goal (LTG) Pt to ambulate with left stride length = right stride length LTG Duration 04/18/18 Four Impairment Range of Motion [place] Goal (LTG) Pt left knee ROM to 5?-110? LTG Duration 04/18/18 Three Impairment Activity Tolerance Short Term Goal (STG) Pt to return to swimming at the [facility] with no difficulty entering or exiting the pool STG Duration 03/18/18 [place] Goal (LTG) Pt to return to line-dancing with no increased symptoms LTG Duration 04/18/18 Two Impairment ADL tolerance Short Term Goal (STG) Pt to put on shoes independently STG Duration 03/18/18 One Impairment Pt does not have an appropriate home exercise program Short Term Goal (STG) Pt to be independent and compliant with appropriate HEP STG Duration 03/18/18 Assessment Summary Assessment Pt presents three weeks s/p L medial and lateral partial meniscectomies. Pt presents with a variety of deficiencies , including gait and balance, stiffness, weakness, and ADL difficulties. Additionally, pt 's course of rehab is complicated by a severe visual impairment, history of CVA, HTN, Cancer, and arthritis. Pt should ebenfit from strengthening and gait training, as well as stretching and flexibility. Pt may also benefit from a few sessions of aquatic therapy, after which she may be able to return to the pool independently. Physical Therapy Plan Frequency and Duration Frequency of Treatment 2x/Week Duration of Treatment 12 weeks Plan of Care Start Date 02/16/18 Plan of Care End Date 05/11/18 Therapeutic Interventions Therapeutic Interventions Aquatic Therapy Balance Training Gait Training Home Exercise Program Joint Mobilizations Manual Therapy Neuromuscular Re-education Patient/Caregiver Education Self-Care/Home Management Soft Tissue Mobilization Therapeutic Activities Therapeutic Exercises Modalities Cold Pack/Ice Massage Electric Stimulation Hot Packs Ultrasound Next Visit Focus/Plan Next Note Type Treatment Note Next Visit Plan ROM/Mobility, Strengthening, Joint mobilization
--- NOTE | 2018-02-17 17:44 | PT.OPPOC ---
Current Diagnoses Stiffness of left knee, not elsewhere classified (02/16/18) Other abnormalities of gait and mobility (02/16/18) Weakness (02/16/18) Other tear of medial meniscus, current injury, left knee, subsequent encounter (02/16/18) Provider Visit Care Team Role Provider Type Mazin Gunter MD Primary Care Provider Physician Specialty: Internal Medicine Address: [address] [place] [address], [address] Email: Thomas Fajardo MD Attending Provider Physician Specialty: Orthopedic Surgery Address: [address] [place] [address], [phone] Email: [email or web address] Plan Of Care PT-OP-T Assessment and Plan Start: 02/17/18 17:02 Freq: Status: Active Protocol: Document 02/16/18 09:45 DCW (Rec: 02/17/18 17:43 DCW [id number]) Physical Therapy Assessment Rehab Potential Rehabilitation Potential Good Evaluation Complexity Number of Personal Factors/Comorbidities 3 or More Number of Body Systems Impaired 3 Clinical Presentation at Evaluation Unstable Impairments Impairments Activity Tolerance Functional Mobility Gait Pain ROM Strength Tone Goals Six Impairment Stairs Short Term Goal (STG) Pt to ascend and descend stairs in a step-to gait pattern facing in the direction of movement with the use of one railing. STG Duration 03/18/18 Five Impairment Gait Short Term Goal (STG) Pt to ambulate 200' with no antalgic gait STG Duration 03/18/18 [employer] Officer Goal (LTG) Pt to ambulate with left stride length = right stride length LTG Duration 04/18/18 Four Impairment Range of Motion Group Home Goal (LTG) Pt left knee ROM to 5?-110? LTG Duration 04/18/18 Three Impairment Activity Tolerance Short Term Goal (STG) Pt to return to swimming at the [facility] with no difficulty entering or exiting the pool STG Duration 03/18/18 Group Home Goal (LTG) Pt to return to line-dancing with no increased symptoms LTG Duration 04/18/18 Two Impairment ADL tolerance Short Term Goal (STG) Pt to put on shoes independently STG Duration 03/18/18 One Impairment Pt does not have an appropriate home exercise program Short Term Goal (STG) Pt to be independent and compliant with appropriate HEP STG Duration 03/18/18 Assessment Summary Assessment Pt presents three weeks s/p L medial and lateral partial meniscectomies. Pt presents with a variety of deficiencies , including gait and balance, stiffness, weakness, and ADL difficulties. Additionally, pt 's course of rehab is complicated by a severe visual impairment, history of CVA, HTN, Cancer, and arthritis. Pt should benefit from strengthening and gait training, as well as stretching and flexibility. Pt may also benefit from a few sessions of aquatic therapy, after which she may be able to return to the pool independently. Physical Therapy Plan Frequency and Duration Frequency of Treatment 2x/Week Duration of Treatment 12 weeks Plan of Care Start Date 02/16/18 Plan of Care End Date 05/11/18 Therapeutic Interventions Therapeutic Interventions Aquatic Therapy Balance Training Gait Training Home Exercise Program Joint Mobilizations Manual Therapy Neuromuscular Re-education Patient/Caregiver Education Self-Care/Home Management Soft Tissue Mobilization Therapeutic Activities Therapeutic Exercises Modalities Cold Pack/Ice Massage Electric Stimulation Hot Packs Ultrasound Next Visit Focus/Plan Next Note Type Treatment Note Next Visit Plan ROM/Mobility, Strengthening, Joint mobilization Plan of Care Dates Plan of Care Start Date 02/16/18 Plan of Care End Date 05/11/18 Please Sign and Return: I have reviewed this Plan of Care and certify that the skilled therapy services above are required to meet the patient?s needs. Physician Signature Date Printed Name and Credentials Clinical Instructor Signature Printed Name and Credentials
--- NOTE | 2018-02-19 10:31 | PT.OTN ---
Current Diagnoses Other tear of medial meniscus, current injury, left knee, initial encounter (02/19/18) Physical Therapy Treatment Note PT-OP-A Visit Information Start: 02/17/18 17:02 Freq: Status: Active Protocol: Document 02/19/18 09:50 DCW (Rec: 02/19/18 10:27 DCW [id number]) Out-Patient Physical Therapy Visit Information Visit Information Visit Type Treatment Note Visit Note Five minutes late Visit Start Time 09:50 Visit Stop Time 10:30 Total Visit Minutes 40 Visit Number 2 Number of SENIOR CLINICAL STUDY MANAGER Visits 0 Evaluation Information Evaluation Date 02/16/18 PT-OP-B Current Condition Start: 02/17/18 17:02 Freq: Status: Active Protocol: Document 02/16/18 09:45 DCW (Rec: 02/17/18 17:43 DCW [id number]) Current Condition History of Current Condition Onset Date 21 Days post-op Current Complaints Left knee pain, stiffness, gait difficulty s/p partial L meniscectomy History of Current Condition Pt is a 67 year old female presenting 21 days s/p L medial and lateral partial meniscectomies. 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 At that time, she felt something in her knee rip, and began suffering from pain, swelling, and was also experiencing her knee locking up. An MRI revealed a meniscus tear, and pt had her meniscectomy on 01/26/18. Pt reports that since surgery, she has been stiff, especially when weight-bearing, and she prefers to wear a brace in public for support, however notes that she knows it is not the best idea, because she'll get weaker. 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 Prior Treatments and Tests partial L medial and lateral meniscectomies Treatment Goals Patient/Caregiver Goals Pt wants to walk normally, and to be able to walk along the streets in town on her own without a fear of falling. Additionally, pt previously enjoyed swimming at the [facility], but is unable to go up or down the ladder currently due to her knee. Prior Functional Status Baseline Function- ADL's Modified Independent Baseline Function- Mobility Modified Independent Baseline Function- Gait Probing cane Current Functional Impairments (Reported) Functional Limitations- ADL's Pt unable to don/doff shoe on left foot Functional Limitations- Mobility/Gait Pt has increased pain and symptoms on stairs, using hands to crawl up them when at home. In public, pt reports that she goes sideways up stairs so she can use both hands on the same railing for support. Functional Limitations- Recreation/ Unable to climb up/down ladder Hobbies at [employer], unable to go line-dancing PT-OP-C Subjective Start: 02/17/18 17:02 Freq: Status: Active Protocol: Document 02/19/18 09:50 DCW (Rec: 02/19/18 10:27 DCW [id number]) OP-PT Subjective Patient Comments Patient Comments Pt notes she is actually feeling better today, but admits she over-did it on Friday walking down to the bus stop. Patient Questionnaires Lower Extremity Functional Scale LEFS Score 27/80 = 33.75% OP-PT Pain Assessment Pain Assessment Grid Paper Pain Assessment Grid Completed Yes Location Left Lateral Ankle Intensity 4 Scale Used Numeric (1 - 10) Left Anterior Knee Intensity 4 Scale Used Numeric (1 - 10) PT-OP-D Balance Start: 02/17/18 17:02 Freq: Status: Active Protocol: Document 02/16/18 09:45 DCW (Rec: 02/17/18 17:43 DCW [id number]) OP-PT Balance Assessment Sitting Balance Static Sitting Balance Ability Normal Dynamic Sitting Balance Ability Normal Standing Balance Static Standing Balance Ability Fair Dynamic Standing Balance Ability Poor Guzmán Fall Scale Copyright Permission Ramirez JM, Ramirez RM, Severo SJ. Development of a scale to identify the fall- prone patient. Can J Aging 1989;8;366-7. Emily Guzmán (2009). Preventing patient falls. (2nd ed). [place]: [place]. PT-OP-F Manual Assessment Start: 02/17/18 17:02 Freq: Status: Active Protocol: Document 02/16/18 09:45 DCW (Rec: 02/17/18 17:43 DCW [id number]) Manual Assessments Joint Mobility Assessment Joint Mobility Assessment Immobility throughout left knee joint, mild joint effusion present. PT-OP-G Mobility & Gait Start: 02/17/18 17:02 Freq: Status: Active Protocol: Document 02/16/18 09:45 DCW (Rec: 02/17/18 17:43 DCW [id number]) OP Gait Assessment Gait Gait Assistance Required: Contact Guard Assist Distance (Feet) 40 Able to Maintain Weight Bearing Status Yes During Gait Assistive Devices Assistive Device None Orthotic/Prosthetic Devices or Brace: No Gait Deviations General Gait Pattern Antalgic Decreased Stride Length Decreased Feet Clearance Flexed Trunk Step-to Gait Factors Limiting Gait Function Factors Limiting Gait Function Decreased Strength Limited Range of Motion Pain Poor Balance Comments Gait Comments Pt gait presented with a slow, staggering/halting gait pattern with shortened right stride length to decrease stance time on left foot. Stair Climbing Evaluation Evaluation Level of Assist On Stairs Contact Guard Assistance Devices Stair Climbing Assistive Devices Left Railing Technique/Endurance Stair Climbing Direction Ascend and Descend Stair Climbing Technique Step to Step Number of Steps Climbed 3 Stair Climbing Set # Repetitions (reps) 1 Comments Stair Climbing Comments Pt uses both hands on left railing, ascending/descending sideways PT-OP-K Range of Motion Start: 02/17/18 17:02 Freq: Status: Active Protocol: Document 02/16/18 09:45 DCW (Rec: 02/17/18 17:43 DCW [id number]) Knee Goniometric Range of Motion Knee Measured in Degrees Right Flexion Active (degrees) 123 Extension Active (degrees) 0 Left Knee ROM WFL No Patient Position Supine Flexion Active (degrees) 82 Extension Active (degrees) 13 PT-OP-M Strength Start: 02/17/18 17:02 Freq: Status: Active Protocol: Document 02/16/18 09:45 DCW (Rec: 02/17/18 17:43 DCW [id number]) Knee Strength Knee Manual Muscle Testing Right Flexion (S2) 4 Good Extension (L3) 4+ Good+ Left Flexion (S2) 4- Good- Extension (L3) 3+ Fair+ PT-OP-Q Treatments Start: 02/17/18 17:02 Freq: Status: Active Protocol: Document 02/19/18 09:50 DCW (Rec: 02/19/18 10:27 DCW [id number]) Cardio Equipment Recumbent Bicycle Duration (Minutes) 5 Resistance 0 Seat Position 3 Other Unable to perform full rotation Gym Equipment Shuttle Recovery Unilateral Squats Resistance 37# Shuttle Recovery Platform Stable Bilateral Squats Resistance 75# Shuttle Recovery Platform Stable Therapeutic Ball Reverse Leg Press Exercise Details Hip/knee flexion and extension /c feet on T-ball vs T-band resistance Ball Size/Color Red - 55 cm Lv 2 T-band Body Position Supine Therapeutic Exercises Sitting Exercises Long Arc Quad Sitting Exercise Name LAQ Side left Resistance 4# Equipment Used ankle weight Standing Exercises Hip Extension Standing Exercise Name Hip extension Side bilateral Resistance Lv 2 Equipment Used T-band Terminal Knee Extension Standing Exercise Name TKE Side left Resistance Lv 2 Equipment Used T-band Comments Band superior to knee d/t pain Other Exercises Resisted Side-stepping Other Exercise Name Resisted side-stepping Resistance Yellow Equipment Used T-band PT-OP-T Assessment and Plan Start: 02/17/18 17:02 Freq: Status: Active Protocol: Document 02/19/18 09:50 DCW (Rec: 02/19/18 10:27 DCW [id number]) Physical Therapy Assessment Impairments Impairments Activity Tolerance Functional Mobility Gait Pain ROM Strength Tone Goals Six Impairment Stairs Short Term Goal (STG) Pt to ascend and descend stairs in a step-to gait pattern facing in the direction of movement with the use of one railing. STG Duration 03/18/18 Five Impairment Gait Short Term Goal (STG) Pt to ambulate 200' with no antalgic gait STG Duration 03/18/18 Online Program Coordinator Goal (LTG) Pt to ambulate with left stride length = right stride length LTG Duration 04/18/18 Four Impairment Range of Motion [facility] Goal (LTG) Pt left knee ROM to 5?-110? LTG Duration 04/18/18 Three Impairment Activity Tolerance Short Term Goal (STG) Pt to return to swimming at the [facility] with no difficulty entering or exiting the pool STG Duration 03/18/18 Online Program Coordinator Goal (LTG) Pt to return to line-dancing with no increased symptoms LTG Duration 04/18/18 Two Impairment ADL tolerance Short Term Goal (STG) Pt to put on shoes independently STG Duration 03/18/18 One Impairment Pt does not have an appropriate home exercise program Short Term Goal (STG) Pt to be independent and compliant with appropriate HEP STG Duration 03/18/18 Assessment Summary Assessment Pt tolerated addition of TherEx well today, and demonstrating significantly improved gait today, with just mild antalgia. Physical Therapy Plan Frequency and Duration Frequency of Treatment 2x/Week Duration of Treatment 12 weeks Plan of Care Start Date 02/16/18 Plan of Care End Date 05/11/18 Therapeutic Interventions Therapeutic Interventions Aquatic Therapy Balance Training Gait Training Home Exercise Program Joint Mobilizations Manual Therapy Neuromuscular Re-education Patient/Caregiver Education Self-Care/Home Management Soft Tissue Mobilization Therapeutic Activities Therapeutic Exercises Modalities Cold Pack/Ice Massage Electric Stimulation Hot Packs Ultrasound Next Visit Focus/Plan Next Note Type Treatment Note Next Visit Plan ROM/Mobility, Strengthening, Joint mobilization
--- NOTE | 2018-02-24 12:20 | PT.OTN ---
Current Diagnoses Other tear of medial meniscus, current injury, left knee, initial encounter (02/24/18) Physical Therapy Treatment Note PT-OP-A Visit Information Start: 02/17/18 17:02 Freq: Status: Active Protocol: Document 02/24/18 09:10 EA (Rec: 02/24/18 09:47 EA [id number]) Out-Patient Physical Therapy Visit Information Visit Information Visit Type Treatment Note Visit Note Five minutes late Visit Start Time 09:50 Visit Stop Time 10:30 Total Visit Minutes 40 Visit Number 3 Number of SHOE PLANNER Visits 0 PT-OP-B Current Condition Start: 02/17/18 17:02 Freq: Status: Active Protocol: Document 02/16/18 09:45 DCW (Rec: 02/17/18 17:43 DCW [id number]) Current Condition History of Current Condition Onset Date 21 Days post-op Current Complaints Left knee pain, stiffness, gait difficulty s/p partial L meniscectomy History of Current Condition Pt is a 67 year old female presenting 21 days s/p L medial and lateral partial meniscectomies. 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 At that time, she felt something in her knee rip, and began suffering from pain, swelling, and was also experiencing her knee locking up. An MRI revealed a meniscus tear, and pt had her meniscectomy on 01/26/18. Pt reports that since surgery, she has been stiff, especially when weight-bearing, and she prefers to wear a brace in public for support, however notes that she knows it is not the best idea, because she'll get weaker. 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 Prior Treatments and Tests partial L medial and lateral meniscectomies Treatment Goals Patient/Caregiver Goals Pt wants to walk normally, and to be able to walk along the streets in town on her own without a fear of falling. Additionally, pt previously enjoyed swimming at the [facility], but is unable to go up or down the ladder currently due to her knee. Prior Functional Status Baseline Function- ADL's Modified Independent Baseline Function- Mobility Modified Independent Baseline Function- Gait Probing cane Current Functional Impairments (Reported) Functional Limitations- ADL's Pt unable to don/doff shoe on left foot Functional Limitations- Mobility/Gait Pt has increased pain and symptoms on stairs, using hands to crawl up them when at home. In public, pt reports that she goes sideways up stairs so she can use both hands on the same railing for support. Functional Limitations- Recreation/ Unable to climb up/down ladder Hobbies at [employer], unable to go line-dancing PT-OP-C Subjective Start: 02/17/18 17:02 Freq: Status: Active Protocol: Document 02/24/18 09:10 EA (Rec: 02/24/18 09:47 EA [id number]) OP-PT Subjective Patient Comments Patient Comments Pt reports able to bent knee as she able now to ties shoes; states back pain stops her sometimes from being mobilie. PT-OP-D Balance Start: 02/17/18 17:02 Freq: Status: Active Protocol: Document 02/16/18 09:45 DCW (Rec: 02/17/18 17:43 DCW [id number]) OP-PT Balance Assessment Sitting Balance Static Sitting Balance Ability Normal Dynamic Sitting Balance Ability Normal Standing Balance Static Standing Balance Ability Fair Dynamic Standing Balance Ability Poor Guzmán Fall Scale Copyright Permission Ramirez REYNOLDS, Ramirez RM, Severo SJ. Development of a scale to identify the fall- prone patient. Can J Aging 1989;8;366-7. Emily Guzmán (2009). Preventing patient falls. (2nd ed). [place]: Cart[place]. PT-OP-F Manual Assessment Start: 02/17/18 17:02 Freq: Status: Active Protocol: Document 02/16/18 09:45 DCW (Rec: 02/17/18 17:43 DCW [id number]) Manual Assessments Joint Mobility Assessment Joint Mobility Assessment Immobility throughout left knee joint, mild joint effusion present. PT-OP-G Mobility & Gait Start: 02/17/18 17:02 Freq: Status: Active Protocol: Document 02/16/18 09:45 DCW (Rec: 02/17/18 17:43 DCW [id number]) OP Gait Assessment Gait Gait Assistance Required: Contact Guard Assist Distance (Feet) 40 Able to Maintain Weight Bearing Status Yes During Gait Assistive Devices Assistive Device None Orthotic/Prosthetic Devices or Brace: No Gait Deviations General Gait Pattern Antalgic Decreased Stride Length Decreased Feet Clearance Flexed Trunk Step-to Gait Factors Limiting Gait Function Factors Limiting Gait Function Decreased Strength Limited Range of Motion Pain Poor Balance Comments Gait Comments Pt gait presented with a slow, staggering/halting gait pattern with shortened right stride length to decrease stance time on left foot. Stair Climbing Evaluation Evaluation Level of Assist On Stairs Contact Guard Assistance Devices Stair Climbing Assistive Devices Left Railing Technique/Endurance Stair Climbing Direction Ascend and Descend Stair Climbing Technique Step to Step Number of Steps Climbed 3 Stair Climbing Set # Repetitions (reps) 1 Comments Stair Climbing Comments Pt uses both hands on left railing, ascending/descending sideways PT-OP-K Range of Motion Start: 02/17/18 17:02 Freq: Status: Active Protocol: Document 02/16/18 09:45 DCW (Rec: 02/17/18 17:43 DCW [id number]) Knee Goniometric Range of Motion Knee Measured in Degrees Right Flexion Active (degrees) 123 Extension Active (degrees) 0 Left Knee ROM WFL No Patient Position Supine Flexion Active (degrees) 82 Extension Active (degrees) 13 PT-OP-M Strength Start: 02/17/18 17:02 Freq: Status: Active Protocol: Document 02/16/18 09:45 DCW (Rec: 02/17/18 17:43 DCW [id number]) Knee Strength Knee Manual Muscle Testing Right Flexion (S2) 4 Good Extension (L3) 4+ Good+ Left Flexion (S2) 4- Good- Extension (L3) 3+ Fair+ PT-OP-Q Treatments Start: 02/17/18 17:02 Freq: Status: Active Protocol: Document 02/24/18 09:10 EA (Rec: 02/24/18 09:47 EA [id number]) Cardio Equipment Recumbent Stepper (Sci-Fit) Duration (Minutes) 7 Seat Position 10 Other arm support due to back pain Gym Equipment Shuttle Recovery Unilateral Squats Resistance 37# Shuttle Recovery Platform Stable Bilateral Squats Resistance 75# Shuttle Recovery Platform Stable Therapeutic Exercises Supine Exercises Straight Leg Raise Supine Exercise Name SLR Side left Sitting Exercises Long Arc Quad Sitting Exercise Name LAQ Side left Resistance 4# Equipment Used ankle weight Standing Exercises Hip Extension Standing Exercise Name Hip extension Side bilateral Resistance Lv 2 Equipment Used T-band Terminal Knee Extension Standing Exercise Name TKE Side left Resistance Lv 2 Equipment Used T-band Comments Band superior to knee d/t pain Other Exercises Resisted Side-stepping Other Exercise Name Resisted side-stepping with squat Resistance Yellow Equipment Used T-band PT-OP-T Assessment and Plan Start: 02/17/18 17:02 Freq: Status: Active Protocol: Document 02/24/18 09:10 EA (Rec: 02/24/18 09:47 EA [id number]) Physical Therapy Assessment Assessment Summary Assessment Tolerated treatment with no increased in back symptoms. Physical Therapy Plan Next Visit Focus/Plan Next Note Type Treatment Note Next Visit Plan ROM/Mobility, Strengthening, Joint mobilization
--- NOTE | 2018-02-27 11:37 | PT.OTN ---
Current Diagnoses Other tear of medial meniscus, current injury, left knee, initial encounter (02/27/18) Physical Therapy Treatment Note PT-OP-A Visit Information Start: 02/17/18 17:02 Freq: Status: Active Protocol: Document 02/27/18 11:30 SA (Rec: 02/27/18 11:37 SA [id number]) Out-Patient Physical Therapy Visit Information Visit Information Visit Type Treatment Note Visit Start Time 09:45 Visit Stop Time 10:30 Total Visit Minutes 45 Visit Number 4 Number of NEGATIVE STRIPPER Visits 1 PT-OP-B Current Condition Start: 02/17/18 17:02 Freq: Status: Active Protocol: Document 02/16/18 09:45 DCW (Rec: 02/17/18 17:43 DCW [id number]) Current Condition History of Current Condition Onset Date 21 Days post-op Current Complaints Left knee pain, stiffness, gait difficulty s/p partial L meniscectomy History of Current Condition Pt is a 67 year old female presenting 21 days s/p L medial and lateral partial meniscectomies. 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 At that time, she felt something in her knee rip, and began suffering from pain, swelling, and was also experiencing her knee locking up. An MRI revealed a meniscus tear, and pt had her meniscectomy on 01/26/18. Pt reports that since surgery, she has been stiff, especially when weight-bearing, and she prefers to wear a brace in public for support, however notes that she knows it is not the best idea, because she'll get weaker. 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 Prior Treatments and Tests partial L medial and lateral meniscectomies Treatment Goals Patient/Caregiver Goals Pt wants to walk normally, and to be able to walk along the streets in town on her own without a fear of falling. Additionally, pt previously enjoyed swimming at the [facility], but is unable to go up or down the ladder currently due to her knee. Prior Functional Status Baseline Function- ADL's Modified Independent Baseline Function- Mobility Modified Independent Baseline Function- Gait Probing cane Current Functional Impairments (Reported) Functional Limitations- ADL's Pt unable to don/doff shoe on left foot Functional Limitations- Mobility/Gait Pt has increased pain and symptoms on stairs, using hands to crawl up them when at home. In public, pt reports that she goes sideways up stairs so she can use both hands on the same railing for support. Functional Limitations- Recreation/ Unable to climb up/down ladder Hobbies at [employer], unable to go line-dancing PT-OP-C Subjective Start: 02/17/18 17:02 Freq: Status: Active Protocol: Document 02/27/18 11:30 SA (Rec: 02/27/18 11:37 SA [id number]) OP-PT Subjective Patient Comments Patient Comments Pt reports L knee ROM improving but still with difficulty at tying shoes and with tasks that require excessive flexion. Using CP at home. PT-OP-D Balance Start: 02/17/18 17:02 Freq: Status: Active Protocol: Document 02/16/18 09:45 DCW (Rec: 02/17/18 17:43 DCW [id number]) OP-PT Balance Assessment Sitting Balance Static Sitting Balance Ability Normal Dynamic Sitting Balance Ability Normal Standing Balance Static Standing Balance Ability Fair Dynamic Standing Balance Ability Poor Guzmán Fall Scale Copyright Permission Ramirez REYNOLDS, Ramirez RM, Severo SJ. Development of a scale to identify the fall- prone patient. Can J Aging 1989;8;366-7. Emily Guzmán (2009). Preventing patient falls. (2nd ed). [place]: Cart[place]. PT-OP-F Manual Assessment Start: 02/17/18 17:02 Freq: Status: Active Protocol: Document 02/16/18 09:45 DCW (Rec: 02/17/18 17:43 DCW [id number]) Manual Assessments Joint Mobility Assessment Joint Mobility Assessment Immobility throughout left knee joint, mild joint effusion present. PT-OP-G Mobility & Gait Start: 02/17/18 17:02 Freq: Status: Active Protocol: Document 02/16/18 09:45 DCW (Rec: 02/17/18 17:43 DCW [id number]) OP Gait Assessment Gait Gait Assistance Required: Contact Guard Assist Distance (Feet) 40 Able to Maintain Weight Bearing Status Yes During Gait Assistive Devices Assistive Device None Orthotic/Prosthetic Devices or Brace: No Gait Deviations General Gait Pattern Antalgic Decreased Stride Length Decreased Feet Clearance Flexed Trunk Step-to Gait Factors Limiting Gait Function Factors Limiting Gait Function Decreased Strength Limited Range of Motion Pain Poor Balance Comments Gait Comments Pt gait presented with a slow, staggering/halting gait pattern with shortened right stride length to decrease stance time on left foot. Stair Climbing Evaluation Evaluation Level of Assist On Stairs Contact Guard Assistance Devices Stair Climbing Assistive Devices Left Railing Technique/Endurance Stair Climbing Direction Ascend and Descend Stair Climbing Technique Step to Step Number of Steps Climbed 3 Stair Climbing Set # Repetitions (reps) 1 Comments Stair Climbing Comments Pt uses both hands on left railing, ascending/descending sideways PT-OP-K Range of Motion Start: 02/17/18 17:02 Freq: Status: Active Protocol: Document 02/16/18 09:45 DCW (Rec: 02/17/18 17:43 DCW [id number]) Knee Goniometric Range of Motion Knee Measured in Degrees Right Flexion Active (degrees) 123 Extension Active (degrees) 0 Left Knee ROM WFL No Patient Position Supine Flexion Active (degrees) 82 Extension Active (degrees) 13 PT-OP-M Strength Start: 02/17/18 17:02 Freq: Status: Active Protocol: Document 02/16/18 09:45 DCW (Rec: 02/17/18 17:43 DCW [id number]) Knee Strength Knee Manual Muscle Testing Right Flexion (S2) 4 Good Extension (L3) 4+ Good+ Left Flexion (S2) 4- Good- Extension (L3) 3+ Fair+ PT-OP-Q Treatments Start: 02/17/18 17:02 Freq: Status: Active Protocol: Document 02/27/18 11:30 SA (Rec: 02/27/18 11:37 SA [id number]) Cardio Equipment Recumbent Stepper (Sci-Fit) Duration (Minutes) 7 Seat Position 10 Other arm support due to back pain Gym Equipment Shuttle Recovery Unilateral Squats Resistance 37# Shuttle Recovery Platform Stable Reps/Time fatigue Bilateral Squats Resistance 75# Shuttle Recovery Platform Stable Reps/Time fatigue Therapeutic Exercises Sitting Exercises Long Arc Quad Sitting Exercise Name LAQ Side left Resistance 4# Equipment Used ankle weight Standing Exercises HS stretch Side bilateral Reps/Minutes 30 x 2 Comments at stair Hip Extension Standing Exercise Name Hip extension Side bilateral Resistance Lv 2 Equipment Used T-band Terminal Knee Extension Standing Exercise Name TKE Side left Resistance Lv 2 Equipment Used T-band Comments Band superior to knee d/t pain Other Exercises Resisted Side-stepping Other Exercise Name Resisted side-stepping with squat Resistance Yellow Equipment Used T-band Reps/Minutes 4 lengths of bar PT-OP-T Assessment and Plan Start: 02/17/18 17:02 Freq: Status: Active Protocol: Document 02/27/18 11:30 SA (Rec: 02/27/18 11:37 SA [id number]) Physical Therapy Assessment Progress Towards Goals Progress Towards Goals Progressing Toward Goals Progress Comments Pt using ice for pain relief at home and consistent with HEP Assessment Summary Assessment Decreased back pain today, tolerated ther ex well. Physical Therapy Plan Next Visit Focus/Plan Next Note Type Treatment Note Next Visit Plan Continue to progress ROM/ strengthening program. Joint mobs
--- NOTE | 2018-03-02 15:46 | PT.OTN ---
Current Diagnoses Other tear of medial meniscus, current injury, left knee, initial encounter (03/02/18) Physical Therapy Treatment Note PT-OP-A Visit Information Start: 02/17/18 17:02 Freq: Status: Active Protocol: Document 03/02/18 10:39 EA (Rec: 03/02/18 11:14 EA [id number]) Out-Patient Physical Therapy Visit Information Visit Information Visit Type Treatment Note Visit Note Five minutes late Visit Start Time 10:30 Visit Stop Time 11:15 Total Visit Minutes 45 Visit Number 5 Number of SPECIAL SERVICES AGENT Visits 0 PT-OP-B Current Condition Start: 02/17/18 17:02 Freq: Status: Active Protocol: Document 02/16/18 09:45 DCW (Rec: 02/17/18 17:43 DCW [id number]) Current Condition History of Current Condition Onset Date 21 Days post-op Current Complaints Left knee pain, stiffness, gait difficulty s/p partial L meniscectomy History of Current Condition Pt is a 67 year old female presenting 21 days s/p L medial and lateral partial meniscectomies. 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 At that time, she felt something in her knee rip, and began suffering from pain, swelling, and was also experiencing her knee locking up. An MRI revealed a meniscus tear, and pt had her meniscectomy on 01/26/18. Pt reports that since surgery, she has been stiff, especially when weight-bearing, and she prefers to wear a brace in public for support, however notes that she knows it is not the best idea, because she'll get weaker. 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 Prior Treatments and Tests partial L medial and lateral meniscectomies Treatment Goals Patient/Caregiver Goals Pt wants to walk normally, and to be able to walk along the streets in town on her own without a fear of falling. Additionally, pt previously enjoyed swimming at the [facility], but is unable to go up or down the ladder currently due to her knee. Prior Functional Status Baseline Function- ADL's Modified Independent Baseline Function- Mobility Modified Independent Baseline Function- Gait Probing cane Current Functional Impairments (Reported) Functional Limitations- ADL's Pt unable to don/doff shoe on left foot Functional Limitations- Mobility/Gait Pt has increased pain and symptoms on stairs, using hands to crawl up them when at home. In public, pt reports that she goes sideways up stairs so she can use both hands on the same railing for support. Functional Limitations- Recreation/ Unable to climb up/down ladder Hobbies at [employer], unable to go line-dancing PT-OP-C Subjective Start: 02/17/18 17:02 Freq: Status: Active Protocol: Document 03/02/18 10:39 EA (Rec: 03/02/18 11:14 EA [id number]) OP-PT Subjective Patient Comments Patient Comments Pt reports they walk from house to rehab for about 10 mins; states left inner knee is quite sore but tolerable. PT-OP-D Balance Start: 02/17/18 17:02 Freq: Status: Active Protocol: Document 02/16/18 09:45 DCW (Rec: 02/17/18 17:43 DCW [id number]) OP-PT Balance Assessment Sitting Balance Static Sitting Balance Ability Normal Dynamic Sitting Balance Ability Normal Standing Balance Static Standing Balance Ability Fair Dynamic Standing Balance Ability Poor Guzmán Fall Scale Copyright Permission Ramirez REYNOLDS, Ramirez RM, Severo SJ. Development of a scale to identify the fall- prone patient. Can J Aging 1989;8;366-7. Emily Guzmán (2009). Preventing patient falls. (2nd ed). [place]: [place]. PT-OP-F Manual Assessment Start: 02/17/18 17:02 Freq: Status: Active Protocol: Document 02/16/18 09:45 DCW (Rec: 02/17/18 17:43 DCW [id number]) Manual Assessments Joint Mobility Assessment Joint Mobility Assessment Immobility throughout left knee joint, mild joint effusion present. PT-OP-G Mobility & Gait Start: 02/17/18 17:02 Freq: Status: Active Protocol: Document 02/16/18 09:45 DCW (Rec: 02/17/18 17:43 DCW [id number]) OP Gait Assessment Gait Gait Assistance Required: Contact Guard Assist Distance (Feet) 40 Able to Maintain Weight Bearing Status Yes During Gait Assistive Devices Assistive Device None Orthotic/Prosthetic Devices or Brace: No Gait Deviations General Gait Pattern Antalgic Decreased Stride Length Decreased Feet Clearance Flexed Trunk Step-to Gait Factors Limiting Gait Function Factors Limiting Gait Function Decreased Strength Limited Range of Motion Pain Poor Balance Comments Gait Comments Pt gait presented with a slow, staggering/halting gait pattern with shortened right stride length to decrease stance time on left foot. Stair Climbing Evaluation Evaluation Level of Assist On Stairs Contact Guard Assistance Devices Stair Climbing Assistive Devices Left Railing Technique/Endurance Stair Climbing Direction Ascend and Descend Stair Climbing Technique Step to Step Number of Steps Climbed 3 Stair Climbing Set # Repetitions (reps) 1 Comments Stair Climbing Comments Pt uses both hands on left railing, ascending/descending sideways PT-OP-K Range of Motion Start: 02/17/18 17:02 Freq: Status: Active Protocol: Document 02/16/18 09:45 DCW (Rec: 02/17/18 17:43 DCW [id number]) Knee Goniometric Range of Motion Knee Measured in Degrees Right Flexion Active (degrees) 123 Extension Active (degrees) 0 Left Knee ROM WFL No Patient Position Supine Flexion Active (degrees) 82 Extension Active (degrees) 13 PT-OP-M Strength Start: 02/17/18 17:02 Freq: Status: Active Protocol: Document 02/16/18 09:45 DCW (Rec: 02/17/18 17:43 DCW [id number]) Knee Strength Knee Manual Muscle Testing Right Flexion (S2) 4 Good Extension (L3) 4+ Good+ Left Flexion (S2) 4- Good- Extension (L3) 3+ Fair+ PT-OP-Q Treatments Start: 02/17/18 17:02 Freq: Status: Active Protocol: Document 03/02/18 10:39 EA (Rec: 03/02/18 11:14 EA [id number]) Cardio Equipment Recumbent Stepper (Sci-Fit) Duration (Minutes) 7 Seat Position 10 Other arm support due to back pain Gym Equipment Shuttle Recovery Unilateral Squats Resistance 503 Shuttle Recovery Platform Stable Reps/Time 15 X 2 Bilateral Squats Resistance 87# Shuttle Recovery Platform Stable Reps/Time 15 X 2 Therapeutic Exercises Supine Exercises Straight Leg Raise Supine Exercise Name SLR Side left Resistance 2#AW Reps/Minutes x10 reps x 2 sets Quad Sets Supine Exercise Name QS Side left Reps/Minutes x10 reps x 2 sets Heel Slides Supine Exercise Name Heel Slides Side left Reps/Minutes 10 reps Standing Exercises Hip Extension Standing Exercise Name Hip extension Side bilateral Resistance Lv 2 Equipment Used T-band Other Exercises Resisted Side-stepping Other Exercise Name Resisted side-stepping with squat Resistance Yellow Equipment Used T-band Reps/Minutes 4 lengths of bar PT-OP-R Modalities Start: 02/17/18 17:02 Freq: Status: Active Protocol: Document 03/02/18 11:14 EA (Rec: 03/02/18 11:14 EA [id number]) Hot Pack/Cold Pack Treatment Cold Pack Location left knee Patient Position Hooklying Treatment Duration (minutes) 15 Patient Tolerance Fair PT-OP-T Assessment and Plan Start: 02/17/18 17:02 Freq: Status: Active Protocol: Document 03/02/18 10:39 EA (Rec: 03/02/18 11:14 EA [id number]) Physical Therapy Assessment Assessment Summary Assessment Muscle crams to left hamstring when attempted to bridge exercises; Patient may benefit with manual PT next session to lessen down down knee tightness and pain. Physical Therapy Plan Next Visit Focus/Plan Next Note Type Treatment Note Next Visit Plan Continue to progress ROM/ strengthening program. Joint mobs. Ice after therex, manual PT.
--- NOTE | 2018-03-04 10:30 | PT.OTN ---
Current Diagnoses Other tear of medial meniscus, current injury, left knee, initial encounter (03/04/18) Physical Therapy Treatment Note PT-OP-A Visit Information Start: 02/17/18 17:02 Freq: Status: Active Protocol: Document 03/04/18 10:30 RCC (Rec: 03/04/18 13:42 RCC [email or web address]) Out-Patient Physical Therapy Visit Information Visit Information Visit Type Treatment Note Visit Note pt wanted to ice at home today Visit Start Time 09:46 Visit Stop Time 10:30 Total Visit Minutes 44 Visit Number 6 Number of HAND MICA PLATE LAYER Visits 0 Evaluation Information Evaluation Date 02/16/18 PT-OP-B Current Condition Start: 02/17/18 17:02 Freq: Status: Active Protocol: Document 02/16/18 09:45 DCW (Rec: 02/17/18 17:43 DCW [id number]) Current Condition History of Current Condition Onset Date 21 Days post-op Current Complaints Left knee pain, stiffness, gait difficulty s/p partial L meniscectomy History of Current Condition Pt is a 67 year old female presenting 21 days s/p L medial and lateral partial meniscectomies. 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 At that time, she felt something in her knee rip, and began suffering from pain, swelling, and was also experiencing her knee locking up. An MRI revealed a meniscus tear, and pt had her meniscectomy on 01/26/18. Pt reports that since surgery, she has been stiff, especially when weight-bearing, and she prefers to wear a brace in public for support, however notes that she knows it is not the best idea, because she'll get weaker. 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 Prior Treatments and Tests partial L medial and lateral meniscectomies Treatment Goals Patient/Caregiver Goals Pt wants to walk normally, and to be able to walk along the streets in town on her own without a fear of falling. Additionally, pt previously enjoyed swimming at the [facility], but is unable to go up or down the ladder currently due to her knee. Prior Functional Status Baseline Function- ADL's Modified Independent Baseline Function- Mobility Modified Independent Baseline Function- Gait Probing cane Current Functional Impairments (Reported) Functional Limitations- ADL's Pt unable to don/doff shoe on left foot Functional Limitations- Mobility/Gait Pt has increased pain and symptoms on stairs, using hands to crawl up them when at home. In public, pt reports that she goes sideways up stairs so she can use both hands on the same railing for support. Functional Limitations- Recreation/ Unable to climb up/down ladder Hobbies at [employer], unable to go line-dancing PT-OP-C Subjective Start: 02/17/18 17:02 Freq: Status: Active Protocol: Document 03/04/18 10:30 RCC (Rec: 03/04/18 13:42 RCC [email or web address]) OP-PT Subjective Patient Comments Patient Comments Pt states that she was extremely sore after last session with muscle cramping, and pain into the achilles. PT-OP-D Balance Start: 02/17/18 17:02 Freq: Status: Active Protocol: Document 02/16/18 09:45 DCW (Rec: 02/17/18 17:43 DCW [id number]) OP-PT Balance Assessment Sitting Balance Static Sitting Balance Ability Normal Dynamic Sitting Balance Ability Normal Standing Balance Static Standing Balance Ability Fair Dynamic Standing Balance Ability Poor Guzmán Fall Scale Copyright Permission Ramirez JM, Ramirez RM, Severo SJ. Development of a scale to identify the fall- prone patient. Can J Aging 1989;8;366-7. Emily Guzmán (2009). Preventing patient falls. (2nd ed). [place]: [place]. PT-OP-F Manual Assessment Start: 02/17/18 17:02 Freq: Status: Active Protocol: Document 02/16/18 09:45 DCW (Rec: 02/17/18 17:43 DCW [id number]) Manual Assessments Joint Mobility Assessment Joint Mobility Assessment Immobility throughout left knee joint, mild joint effusion present. PT-OP-G Mobility & Gait Start: 02/17/18 17:02 Freq: Status: Active Protocol: Document 02/16/18 09:45 DCW (Rec: 02/17/18 17:43 DCW [id number]) OP Gait Assessment Gait Gait Assistance Required: Contact Guard Assist Distance (Feet) 40 Able to Maintain Weight Bearing Status Yes During Gait Assistive Devices Assistive Device None Orthotic/Prosthetic Devices or Brace: No Gait Deviations General Gait Pattern Antalgic Decreased Stride Length Decreased Feet Clearance Flexed Trunk Step-to Gait Factors Limiting Gait Function Factors Limiting Gait Function Decreased Strength Limited Range of Motion Pain Poor Balance Comments Gait Comments Pt gait presented with a slow, staggering/halting gait pattern with shortened right stride length to decrease stance time on left foot. Stair Climbing Evaluation Evaluation Level of Assist On Stairs Contact Guard Assistance Devices Stair Climbing Assistive Devices Left Railing Technique/Endurance Stair Climbing Direction Ascend and Descend Stair Climbing Technique Step to Step Number of Steps Climbed 3 Stair Climbing Set # Repetitions (reps) 1 Comments Stair Climbing Comments Pt uses both hands on left railing, ascending/descending sideways PT-OP-K Range of Motion Start: 02/17/18 17:02 Freq: Status: Active Protocol: Document 02/16/18 09:45 DCW (Rec: 02/17/18 17:43 DCW [id number]) Knee Goniometric Range of Motion Knee Measured in Degrees Right Flexion Active (degrees) 123 Extension Active (degrees) 0 Left Knee ROM WFL No Patient Position Supine Flexion Active (degrees) 82 Extension Active (degrees) 13 PT-OP-M Strength Start: 02/17/18 17:02 Freq: Status: Active Protocol: Document 02/16/18 09:45 DCW (Rec: 02/17/18 17:43 DCW [id number]) Knee Strength Knee Manual Muscle Testing Right Flexion (S2) 4 Good Extension (L3) 4+ Good+ Left Flexion (S2) 4- Good- Extension (L3) 3+ Fair+ PT-OP-Q Treatments Start: 02/17/18 17:02 Freq: Status: Active Protocol: Document 03/04/18 10:30 RCC (Rec: 03/04/18 13:42 RCC [email or web address]) Cardio Equipment Recumbent Stepper (Sci-Fit) Duration (Minutes) 6 Seat Position 10 Therapeutic Exercises Supine Exercises Quad Sets Supine Exercise Name QS Side left Reps/Minutes x10 reps x 2 sets Heel Slides Supine Exercise Name Heel Slides Side left Reps/Minutes 10 reps Manual Therapy Treatment Soft Tissue Mobilization L hamstrings Body Location L hamtrings Mobilization Type Myofascial Release Intensity/Depth Superficial Body Position Hooklying pes anserine Body Location L pes anserine Mobilization Type Myofascial Release Intensity/Depth Superficial Body Position Hooklying L achilles Body Location L achilles Mobilization Type Cross-Friction Intensity/Depth Superficial Body Position Hooklying Joint Mobilizations patellofemoral joint (L) Joint L PF joint Direction inferior, superior Grade II Body Position Supine PT-OP-R Modalities Start: 02/17/18 17:02 Freq: Status: Active Protocol: Document 03/02/18 11:14 EA (Rec: 03/02/18 11:14 EA [id number]) Hot Pack/Cold Pack Treatment Cold Pack Location left knee Patient Position Hooklying Treatment Duration (minutes) 15 Patient Tolerance Fair PT-OP-T Assessment and Plan Start: 02/17/18 17:02 Freq: Status: Active Protocol: Document 03/04/18 10:30 RCC (Rec: 03/04/18 13:42 RCC [email or web address]) Physical Therapy Assessment Assessment Summary Assessment Pt with hypersensitivity to palpation in the L achilles and pes anserine today, limited with her activity tolerance today due to pain. Pt tolerated superficial soft tissue work today only. Recommend to continue to progress slowly with return to exercises due to her reaction with increased pain this past week. Physical Therapy Plan Frequency and Duration Frequency of Treatment 2x/Week Duration of Treatment 12 weeks Plan of Care Start Date 02/16/18 Plan of Care End Date 05/11/18 Next Visit Focus/Plan Next Note Type Treatment Note Next Visit Plan assess tolerance to STR, then progress L knee strengthening as tolerated.
--- NOTE | 2018-03-10 08:26 | PT.OTN ---
Current Diagnoses Other tear of medial meniscus, current injury, left knee, initial encounter (03/04/18) Physical Therapy Treatment Note PT-OP-A Visit Information Start: 02/17/18 17:02 Freq: Status: Active Protocol: Document 03/04/18 10:30 RCC (Rec: 03/04/18 13:42 RCC [email or web address]) Out-Patient Physical Therapy Visit Information Visit Information Visit Type Treatment Note Visit Note pt wanted to ice at home today Visit Start Time 09:46 Visit Stop Time 10:30 Total Visit Minutes 44 Visit Number 6 Number of JOURNEYMAN PRESS OPERATOR Visits 0 Evaluation Information Evaluation Date 02/16/18 PT-OP-B Current Condition Start: 02/17/18 17:02 Freq: Status: Active Protocol: Document 02/16/18 09:45 DCW (Rec: 02/17/18 17:43 DCW [id number]) Current Condition History of Current Condition Onset Date 21 Days post-op Current Complaints Left knee pain, stiffness, gait difficulty s/p partial L meniscectomy History of Current Condition Pt is a 67 year old female presenting 21 days s/p L medial and lateral partial meniscectomies. 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 At that time, she felt something in her knee rip, and began suffering from pain, swelling, and was also experiencing her knee locking up. An MRI revealed a meniscus tear, and pt had her meniscectomy on 01/26/18. Pt reports that since surgery, she has been stiff, especially when weight-bearing, and she prefers to wear a brace in public for support, however notes that she knows it is not the best idea, because she'll get weaker. 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 Prior Treatments and Tests partial L medial and lateral meniscectomies Treatment Goals Patient/Caregiver Goals Pt wants to walk normally, and to be able to walk along the streets in town on her own without a fear of falling. Additionally, pt previously enjoyed swimming at the [facility], but is unable to go up or down the ladder currently due to her knee. Prior Functional Status Baseline Function- ADL's Modified Independent Baseline Function- Mobility Modified Independent Baseline Function- Gait Probing cane Current Functional Impairments (Reported) Functional Limitations- ADL's Pt unable to don/doff shoe on left foot Functional Limitations- Mobility/Gait Pt has increased pain and symptoms on stairs, using hands to crawl up them when at home. In public, pt reports that she goes sideways up stairs so she can use both hands on the same railing for support. Functional Limitations- Recreation/ Unable to climb up/down ladder Hobbies at [employer], unable to go line-dancing PT-OP-C Subjective Start: 02/17/18 17:02 Freq: Status: Active Protocol: Document 03/04/18 10:30 RCC (Rec: 03/04/18 13:42 RCC [email or web address]) OP-PT Subjective Patient Comments Patient Comments Pt states that she was extremely sore after last session with muscle cramping, and pain into the achilles. PT-OP-D Balance Start: 02/17/18 17:02 Freq: Status: Active Protocol: Document 02/16/18 09:45 DCW (Rec: 02/17/18 17:43 DCW [id number]) OP-PT Balance Assessment Sitting Balance Static Sitting Balance Ability Normal Dynamic Sitting Balance Ability Normal Standing Balance Static Standing Balance Ability Fair Dynamic Standing Balance Ability Poor Guzmán Fall Scale Copyright Permission Ramirez JM, Ramirez RM, Severo SJ. Development of a scale to identify the fall- prone patient. Can J Aging 1989;8;366-7. Emily Guzmán (2009). Preventing patient falls. (2nd ed). [place]: [place]. PT-OP-F Manual Assessment Start: 02/17/18 17:02 Freq: Status: Active Protocol: Document 02/16/18 09:45 DCW (Rec: 02/17/18 17:43 DCW [id number]) Manual Assessments Joint Mobility Assessment Joint Mobility Assessment Immobility throughout left knee joint, mild joint effusion present. PT-OP-G Mobility & Gait Start: 02/17/18 17:02 Freq: Status: Active Protocol: Document 02/16/18 09:45 DCW (Rec: 02/17/18 17:43 DCW [id number]) OP Gait Assessment Gait Gait Assistance Required: Contact Guard Assist Distance (Feet) 40 Able to Maintain Weight Bearing Status Yes During Gait Assistive Devices Assistive Device None Orthotic/Prosthetic Devices or Brace: No Gait Deviations General Gait Pattern Antalgic Decreased Stride Length Decreased Feet Clearance Flexed Trunk Step-to Gait Factors Limiting Gait Function Factors Limiting Gait Function Decreased Strength Limited Range of Motion Pain Poor Balance Comments Gait Comments Pt gait presented with a slow, staggering/halting gait pattern with shortened right stride length to decrease stance time on left foot. Stair Climbing Evaluation Evaluation Level of Assist On Stairs Contact Guard Assistance Devices Stair Climbing Assistive Devices Left Railing Technique/Endurance Stair Climbing Direction Ascend and Descend Stair Climbing Technique Step to Step Number of Steps Climbed 3 Stair Climbing Set # Repetitions (reps) 1 Comments Stair Climbing Comments Pt uses both hands on left railing, ascending/descending sideways PT-OP-K Range of Motion Start: 02/17/18 17:02 Freq: Status: Active Protocol: Document 02/16/18 09:45 DCW (Rec: 02/17/18 17:43 DCW [id number]) Knee Goniometric Range of Motion Knee Measured in Degrees Right Flexion Active (degrees) 123 Extension Active (degrees) 0 Left Knee ROM WFL No Patient Position Supine Flexion Active (degrees) 82 Extension Active (degrees) 13 PT-OP-M Strength Start: 02/17/18 17:02 Freq: Status: Active Protocol: Document 02/16/18 09:45 DCW (Rec: 02/17/18 17:43 DCW [id number]) Knee Strength Knee Manual Muscle Testing Right Flexion (S2) 4 Good Extension (L3) 4+ Good+ Left Flexion (S2) 4- Good- Extension (L3) 3+ Fair+ PT-OP-Q Treatments Start: 02/17/18 17:02 Freq: Status: Active Protocol: Document 03/04/18 10:30 RCC (Rec: 03/04/18 13:42 RCC [email or web address]) Cardio Equipment Recumbent Stepper (Sci-Fit) Duration (Minutes) 6 Seat Position 10 Therapeutic Exercises Supine Exercises Quad Sets Supine Exercise Name QS Side left Reps/Minutes x10 reps x 2 sets Heel Slides Supine Exercise Name Heel Slides Side left Reps/Minutes 10 reps Manual Therapy Treatment Soft Tissue Mobilization L hamstrings Body Location L hamtrings Mobilization Type Myofascial Release Intensity/Depth Superficial Body Position Hooklying pes anserine Body Location L pes anserine Mobilization Type Myofascial Release Intensity/Depth Superficial Body Position Hooklying L achilles Body Location L achilles Mobilization Type Cross-Friction Intensity/Depth Superficial Body Position Hooklying Joint Mobilizations patellofemoral joint (L) Joint L PF joint Direction inferior, superior Grade II Body Position Supine PT-OP-R Modalities Start: 02/17/18 17:02 Freq: Status: Active Protocol: Document 03/02/18 11:14 EA (Rec: 03/02/18 11:14 EA [id number]) Hot Pack/Cold Pack Treatment Cold Pack Location left knee Patient Position Hooklying Treatment Duration (minutes) 15 Patient Tolerance Fair PT-OP-T Assessment and Plan Start: 02/17/18 17:02 Freq: Status: Active Protocol: Document 03/04/18 10:30 RCC (Rec: 03/04/18 13:42 RCC [email or web address]) Physical Therapy Assessment Assessment Summary Assessment Pt with hypersensitivity to palpation in the L achilles and pes anserine today, limited with her activity tolerance today due to pain. Pt tolerated superficial soft tissue work today only. Recommend to continue to progress slowly with return to exercises due to her reaction with increased pain this past week. Physical Therapy Plan Frequency and Duration Frequency of Treatment 2x/Week Duration of Treatment 12 weeks Plan of Care Start Date 02/16/18 Plan of Care End Date 05/11/18 Next Visit Focus/Plan Next Note Type Treatment Note Next Visit Plan assess tolerance to STR, then progress L knee strengthening as tolerated.
--- NOTE | 2018-03-10 17:26 | PT.OTN ---
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 At that time, she felt something in her knee rip, and began suffering from pain, swelling, and was also experiencing her knee locking up. An MRI revealed a meniscus tear, and pt had her meniscectomy on 01/26/18. Pt reports that since surgery, she has been stiff, especially when weight-bearing, and she prefers to wear a brace in public for support, however notes that she knows it is not the best idea, because she'll get weaker. 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 Prior Treatments and Tests partial L medial and lateral meniscectomies Treatment Goals Patient/Caregiver Goals Pt wants to walk normally, and to be able to walk along the streets in town on her own without a fear of falling. Additionally, pt previously enjoyed swimming at the [facility], but is unable to go up or down the ladder currently due to her knee. Prior Functional Status Baseline Function- ADL's Modified Independent Baseline Function- Mobility Modified Independent Baseline Function- Gait Probing cane Current Functional Impairments (Reported) Functional Limitations- ADL's Pt unable to don/doff shoe on left foot Functional Limitations- Mobility/Gait Pt has increased pain and symptoms on stairs, using hands to crawl up them when at home. In public, pt reports that she goes sideways up stairs so she can use both hands on the same railing for support. Functional Limitations- Recreation/ Unable to climb up/down ladder Hobbies at [employer], unable to go line-dancing PT-OP-C Subjective Start: 02/17/18 17:02 Freq: Status: Active Protocol: Document 03/10/18 17:03 AMH (Rec: 03/10/18 17:12 AMH [email or web address]) OP-PT Subjective Patient Comments Patient Comments Katherine reports she hurt her back two weeks ago so saw her doctor today for that and will be getting massage therapy. She does note she can put on her shoes easier now with improved knee ROM PT-OP-D Balance Start: 02/17/18 17:02 Freq: Status: Active Protocol: Document 02/16/18 09:45 DCW (Rec: 02/17/18 17:43 DCW [id number]) OP-PT Balance Assessment Sitting Balance Static Sitting Balance Ability Normal Dynamic Sitting Balance Ability Normal Standing Balance Static Standing Balance Ability Fair Dynamic Standing Balance Ability Poor Guzmán Fall Scale Copyright Permission Ramirez REYNOLDS, Ramirez RM, Severo S[place]. Development of a scale to identify the fall- prone patient. Can J Aging 1989;8;366-7. Emily Guzmán (2009). Preventing patient falls. (2nd ed). [place]: [place]. PT-OP-F Manual Assessment Start: 02/17/18 17:02 Freq: Status: Active Protocol: Document 02/16/18 09:45 DCW (Rec: 02/17/18 17:43 DCW [id number]) Manual Assessments Joint Mobility Assessment Joint Mobility Assessment Immobility throughout left knee joint, mild joint effusion present. PT-OP-G Mobility & Gait Start: 02/17/18 17:02 Freq: Status: Active Protocol: Document 02/16/18 09:45 DCW (Rec: 02/17/18 17:43 DCW [id number]) OP Gait Assessment Gait Gait Assistance Required: Contact Guard Assist Distance (Feet) 40 Able to Maintain Weight Bearing Status Yes During Gait Assistive Devices Assistive Device None Orthotic/Prosthetic Devices or Brace: No Gait Deviations General Gait Pattern Antalgic Decreased Stride Length Decreased Feet Clearance Flexed Trunk Step-to Gait Factors Limiting Gait Function Factors Limiting Gait Function Decreased Strength Limited Range of Motion Pain Poor Balance Comments Gait Comments Pt gait presented with a slow, staggering/halting gait pattern with shortened right stride length to decrease stance time on left foot. Stair Climbing Evaluation Evaluation Level of Assist On Stairs Contact Guard Assistance Devices Stair Climbing Assistive Devices Left Railing Technique/Endurance Stair Climbing Direction Ascend and Descend Stair Climbing Technique Step to Step Number of Steps Climbed 3 Stair Climbing Set # Repetitions (reps) 1 Comments Stair Climbing Comments Pt uses both hands on left railing, ascending/descending sideways PT-OP-K Range of Motion Start: 02/17/18 17:02 Freq: Status: Active Protocol: Document 02/16/18 09:45 DCW (Rec: 02/17/18 17:43 DCW [id number]) Knee Goniometric Range of Motion Knee Measured in Degrees Right Flexion Active (degrees) 123 Extension Active (degrees) 0 Left Knee ROM WFL No Patient Position Supine Flexion Active (degrees) 82 Extension Active (degrees) 13 PT-OP-M Strength Start: 02/17/18 17:02 Freq: Status: Active Protocol: Document 02/16/18 09:45 DCW (Rec: 02/17/18 17:43 DCW [id number]) Knee Strength Knee Manual Muscle Testing Right Flexion (S2) 4 Good Extension (L3) 4+ Good+ Left Flexion (S2) 4- Good- Extension (L3) 3+ Fair+ PT-OP-Q Treatments Start: 02/17/18 17:02 Freq: Status: Active Protocol: Document 03/10/18 17:03 AMH (Rec: 03/10/18 17:12 AMH [email or web address]) Cardio Equipment Recumbent Elliptical ([email or web address]) Duration (Minutes) 6 Resistance 2 Gym Equipment Shuttle Recovery Unilateral Squats Resistance 50 Shuttle Recovery Platform Stable Reps/Time 15 X 2 Bilateral Squats Resistance 87# Shuttle Recovery Platform Stable Reps/Time 15 X 2 Therapeutic Exercises Supine Exercises 1 Supine Exercise Name hip flexor stretch in ina test position Straight Leg Raise Supine Exercise Name SLR Side left Resistance 2#AW Reps/Minutes x10 reps x 2 sets Short Arc Quad Supine Exercise Name SAQ Side left Reps/Minutes 2x 10 reps Quad Sets Supine Exercise Name QS Side left Reps/Minutes x10 reps x 2 sets Heel Slides Supine Exercise Name Heel Slides Side left Reps/Minutes 10 reps Manual Therapy Treatment Soft Tissue Mobilization 1 Body Location quad and iliopsoas L Joint Mobilizations patellofemoral joint (L) Joint L PF joint Direction inferior, superior Grade II Body Position Supine PT-OP-R Modalities Start: 02/17/18 17:02 Freq: Status: Active Protocol: Document 03/02/18 11:14 EA (Rec: 03/02/18 11:14 EA [id number]) Hot Pack/Cold Pack Treatment Cold Pack Location left knee Patient Position Hooklying Treatment Duration (minutes) 15 Patient Tolerance Fair PT-OP-T Assessment and Plan Start: 02/17/18 17:02 Freq: Status: Active Protocol: Document 03/10/18 17:03 AMH (Rec: 03/10/18 17:12 AMH [email or web address]) Physical Therapy Assessment Assessment Summary Assessment knee flexion 105 deg today, tolerated iliopsoas stretching well and decreased hypersensitivity to the achilles tendon. Good tolerance for SLR Physical Therapy Plan Frequency and Duration Frequency of Treatment 2x/Week Duration of Treatment 12 weeks Plan of Care Start Date 02/16/18 Plan of Care End Date 05/11/18 Therapeutic Interventions Therapeutic Interventions Aquatic Therapy Balance Training Gait Training Home Exercise Program Joint Mobilizations Manual Therapy Neuromuscular Re-education Patient/Caregiver Education Self-Care/Home Management Soft Tissue Mobilization Therapeutic Activities Therapeutic Exercises Next Visit Focus/Plan Next Note Type Treatment Note Next Visit Plan Continue progressing strengthening, stretches for the quad and iliopsoas
--- NOTE | 2018-03-12 12:13 | PT.OTN ---
Current Diagnoses Other tear of medial meniscus, current injury, left knee, initial encounter (03/12/18) Physical Therapy Treatment Note PT-OP-A Visit Information Start: 02/17/18 17:02 Freq: Status: Active Protocol: Document 03/12/18 08:21 EA (Rec: 03/12/18 09:00 EA [id number]) Out-Patient Physical Therapy Visit Information Visit Information Visit Type Treatment Note Visit Start Time 08:15 Visit Stop Time 09:00 Total Visit Minutes 45 Visit Number 8 PT-OP-B Current Condition Start: 02/17/18 17:02 Freq: Status: Active Protocol: Document 02/16/18 09:45 DCW (Rec: 02/17/18 17:43 DCW [id number]) Current Condition History of Current Condition Onset Date 21 Days post-op Current Complaints Left knee pain, stiffness, gait difficulty s/p partial L meniscectomy History of Current Condition Pt is a 67 year old female presenting 21 days s/p L medial and lateral partial meniscectomies. 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 At that time, she felt something in her knee rip, and began suffering from pain, swelling, and was also experiencing her knee locking up. An MRI revealed a meniscus tear, and pt had her meniscectomy on 01/26/18. Pt reports that since surgery, she has been stiff, especially when weight-bearing, and she prefers to wear a brace in public for support, however notes that she knows it is not the best idea, because she'll get weaker. 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 Prior Treatments and Tests partial L medial and lateral meniscectomies Treatment Goals Patient/Caregiver Goals Pt wants to walk normally, and to be able to walk along the streets in town on her own without a fear of falling. Additionally, pt previously enjoyed swimming at the [facility], but is unable to go up or down the ladder currently due to her knee. Prior Functional Status Baseline Function- ADL's Modified Independent Baseline Function- Mobility Modified Independent Baseline Function- Gait Probing cane Current Functional Impairments (Reported) Functional Limitations- ADL's Pt unable to don/doff shoe on left foot Functional Limitations- Mobility/Gait Pt has increased pain and symptoms on stairs, using hands to crawl up them when at home. In public, pt reports that she goes sideways up stairs so she can use both hands on the same railing for support. Functional Limitations- Recreation/ Unable to climb up/down ladder Hobbies at [employer], unable to go line-dancing PT-OP-C Subjective Start: 02/17/18 17:02 Freq: Status: Active Protocol: Document 03/12/18 09:01 EA (Rec: 03/12/18 09:06 EA [id number]) OP-PT Subjective Patient Comments Patient Comments Pt repoprts went to her surgeon and referred to massage therapist; states had massage to both LE and feels it helps a lot. Patient Reported Progress Improving PT-OP-D Balance Start: 02/17/18 17:02 Freq: Status: Active Protocol: Document 02/16/18 09:45 DCW (Rec: 02/17/18 17:43 DCW [id number]) OP-PT Balance Assessment Sitting Balance Static Sitting Balance Ability Normal Dynamic Sitting Balance Ability Normal Standing Balance Static Standing Balance Ability Fair Dynamic Standing Balance Ability Poor Guzmán Fall Scale Copyright Permission Ramirez REYNOLDS, Ramirez RM, [place]o S[place]. Development of a scale to identify the fall- prone patient. Can J Aging 1989;8;366-7. Emily Guzmán (2009). Preventing patient falls. (2nd ed). [place]: [place]. PT-OP-F Manual Assessment Start: 02/17/18 17:02 Freq: Status: Active Protocol: Document 02/16/18 09:45 DCW (Rec: 02/17/18 17:43 DCW [id number]) Manual Assessments Joint Mobility Assessment Joint Mobility Assessment Immobility throughout left knee joint, mild joint effusion present. PT-OP-G Mobility & Gait Start: 02/17/18 17:02 Freq: Status: Active Protocol: Document 02/16/18 09:45 DCW (Rec: 02/17/18 17:43 DCW [id number]) OP Gait Assessment Gait Gait Assistance Required: Contact Guard Assist Distance (Feet) 40 Able to Maintain Weight Bearing Status Yes During Gait Assistive Devices Assistive Device None Orthotic/Prosthetic Devices or Brace: No Gait Deviations General Gait Pattern Antalgic Decreased Stride Length Decreased Feet Clearance Flexed Trunk Step-to Gait Factors Limiting Gait Function Factors Limiting Gait Function Decreased Strength Limited Range of Motion Pain Poor Balance Comments Gait Comments Pt gait presented with a slow, staggering/halting gait pattern with shortened right stride length to decrease stance time on left foot. Stair Climbing Evaluation Evaluation Level of Assist On Stairs Contact Guard Assistance Devices Stair Climbing Assistive Devices Left Railing Technique/Endurance Stair Climbing Direction Ascend and Descend Stair Climbing Technique Step to Step Number of Steps Climbed 3 Stair Climbing Set # Repetitions (reps) 1 Comments Stair Climbing Comments Pt uses both hands on left railing, ascending/descending sideways PT-OP-K Range of Motion Start: 02/17/18 17:02 Freq: Status: Active Protocol: Document 02/16/18 09:45 DCW (Rec: 02/17/18 17:43 DCW [id number]) Knee Goniometric Range of Motion Knee Measured in Degrees Right Flexion Active (degrees) 123 Extension Active (degrees) 0 Left Knee ROM WFL No Patient Position Supine Flexion Active (degrees) 82 Extension Active (degrees) 13 PT-OP-M Strength Start: 02/17/18 17:02 Freq: Status: Active Protocol: Document 02/16/18 09:45 DCW (Rec: 02/17/18 17:43 DCW [id number]) Knee Strength Knee Manual Muscle Testing Right Flexion (S2) 4 Good Extension (L3) 4+ Good+ Left Flexion (S2) 4- Good- Extension (L3) 3+ Fair+ PT-OP-Q Treatments Start: 02/17/18 17:02 Freq: Status: Active Protocol: Document 03/12/18 08:21 EA (Rec: 03/12/18 09:00 EA [id number]) Cardio Equipment Recumbent Stepper ([employer]) Duration (Minutes) 6 Seat Position 10 Gym Equipment Shuttle Recovery Unilateral Squats Resistance 50 Shuttle Recovery Platform Stable Reps/Time 15 X 2 Bilateral Squats Resistance 87# Shuttle Recovery Platform Stable Reps/Time 15 X 2 Therapeutic Exercises Supine Exercises 1 Supine Exercise Name hip flexor stretch in ina test position Straight Leg Raise Supine Exercise Name SLR Side left Resistance 2#AW Reps/Minutes x10 reps x 2 sets Short Arc Quad Supine Exercise Name FAQ Side left Resistance 4 lbs Reps/Minutes 2x 10 reps Other Exercises 1 Other Exercise Name calf stretches Reps/Minutes x 30sh x 2 reps Comments the LULY Resisted Side-stepping Other Exercise Name Resisted side-stepping with squat Resistance Red Equipment Used T-band Reps/Minutes 4 lengths of bar Manual Therapy Treatment Soft Tissue Mobilization 1 Body Location quad and iliopsoas L L hamstrings Body Location L hamtrings Mobilization Type Myofascial Release Intensity/Depth Superficial Body Position Hooklying PT-OP-R Modalities Start: 02/17/18 17:02 Freq: Status: Active Protocol: Document 03/12/18 08:21 EA (Rec: 03/12/18 09:00 EA [id number]) Hot Pack/Cold Pack Treatment Cold Pack Location left knee Patient Position Hooklying Treatment Duration (minutes) 15 Patient Tolerance Fair PT-OP-T Assessment and Plan Start: 02/17/18 17:02 Freq: Status: Active Protocol: Document 03/12/18 08:21 EA (Rec: 03/12/18 09:00 EA [id number]) Physical Therapy Assessment Assessment Summary Assessment Tolerated treatment well. Patient cont to progress Physical Therapy Plan Next Visit Focus/Plan Next Note Type Treatment Note Next Visit Plan Continue progressing strengthening, stretches for the quad and iliopsoas
--- NOTE | 2018-03-16 15:14 | PT.OTN ---
Current Diagnoses Other tear of medial meniscus, current injury, left knee, initial encounter (03/16/18) Physical Therapy Treatment Note PT-OP-A Visit Information Start: 02/17/18 17:02 Freq: Status: Active Protocol: Document 03/16/18 08:22 EA (Rec: 03/16/18 09:00 EA [id number]) Out-Patient Physical Therapy Visit Information Visit Information Visit Type Treatment Note Visit Start Time 08:15 Visit Stop Time 09:00 Total Visit Minutes 45 Visit Number 9 PT-OP-B Current Condition Start: 02/17/18 17:02 Freq: Status: Active Protocol: Document 02/16/18 09:45 DCW (Rec: 02/17/18 17:43 DCW [id number]) Current Condition History of Current Condition Onset Date 21 Days post-op Current Complaints Left knee pain, stiffness, gait difficulty s/p partial L meniscectomy History of Current Condition Pt is a 67 year old female presenting 21 days s/p L medial and lateral partial meniscectomies. 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 At that time, she felt something in her knee rip, and began suffering from pain, swelling, and was also experiencing her knee locking up. An MRI revealed a meniscus tear, and pt had her meniscectomy on 01/26/18. Pt reports that since surgery, she has been stiff, especially when weight-bearing, and she prefers to wear a brace in public for support, however notes that she knows it is not the best idea, because she'll get weaker. 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 Prior Treatments and Tests partial L medial and lateral meniscectomies Treatment Goals Patient/Caregiver Goals Pt wants to walk normally, and to be able to walk along the streets in town on her own without a fear of falling. Additionally, pt previously enjoyed swimming at the [facility], but is unable to go up or down the ladder currently due to her knee. Prior Functional Status Baseline Function- ADL's Modified Independent Baseline Function- Mobility Modified Independent Baseline Function- Gait Probing cane Current Functional Impairments (Reported) Functional Limitations- ADL's Pt unable to don/doff shoe on left foot Functional Limitations- Mobility/Gait Pt has increased pain and symptoms on stairs, using hands to crawl up them when at home. In public, pt reports that she goes sideways up stairs so she can use both hands on the same railing for support. Functional Limitations- Recreation/ Unable to climb up/down ladder Hobbies at [employer], unable to go line-dancing PT-OP-C Subjective Start: 02/17/18 17:02 Freq: Status: Active Protocol: Document 03/16/18 08:22 EA (Rec: 03/16/18 09:00 EA [id number]) OP-PT Subjective Patient Comments Patient Comments Pt reports went to the pool during the weekend and feels knees were better; states no increased in pain. Patient also reports that she is currently able to walk 2 blocksa with her dogs; shrp pain and unsteady knees still occured few times. PT-OP-D Balance Start: 02/17/18 17:02 Freq: Status: Active Protocol: Document 02/16/18 09:45 DCW (Rec: 02/17/18 17:43 DCW [id number]) OP-PT Balance Assessment Sitting Balance Static Sitting Balance Ability Normal Dynamic Sitting Balance Ability Normal Standing Balance Static Standing Balance Ability Fair Dynamic Standing Balance Ability Poor Guzmán Fall Scale Copyright Permission Ramirez REYNOLDS, Ramirez RM, [place]. Development of a scale to identify the fall- prone patient. Can J Aging 1989;8;366-7. Emily Guzmán (2009). Preventing patient falls. (2nd ed). [place]: [place]. PT-OP-F Manual Assessment Start: 02/17/18 17:02 Freq: Status: Active Protocol: Document 02/16/18 09:45 DCW (Rec: 02/17/18 17:43 DCW [id number]) Manual Assessments Joint Mobility Assessment Joint Mobility Assessment Immobility throughout left knee joint, mild joint effusion present. PT-OP-G Mobility & Gait Start: 02/17/18 17:02 Freq: Status: Active Protocol: Document 02/16/18 09:45 DCW (Rec: 02/17/18 17:43 DCW [id number]) OP Gait Assessment Gait Gait Assistance Required: Contact Guard Assist Distance (Feet) 40 Able to Maintain Weight Bearing Status Yes During Gait Assistive Devices Assistive Device None Orthotic/Prosthetic Devices or Brace: No Gait Deviations General Gait Pattern Antalgic Decreased Stride Length Decreased Feet Clearance Flexed Trunk Step-to Gait Factors Limiting Gait Function Factors Limiting Gait Function Decreased Strength Limited Range of Motion Pain Poor Balance Comments Gait Comments Pt gait presented with a slow, staggering/halting gait pattern with shortened right stride length to decrease stance time on left foot. Stair Climbing Evaluation Evaluation Level of Assist On Stairs Contact Guard Assistance Devices Stair Climbing Assistive Devices Left Railing Technique/Endurance Stair Climbing Direction Ascend and Descend Stair Climbing Technique Step to Step Number of Steps Climbed 3 Stair Climbing Set # Repetitions (reps) 1 Comments Stair Climbing Comments Pt uses both hands on left railing, ascending/descending sideways PT-OP-K Range of Motion Start: 02/17/18 17:02 Freq: Status: Active Protocol: Document 02/16/18 09:45 DCW (Rec: 02/17/18 17:43 DCW [id number]) Knee Goniometric Range of Motion Knee Measured in Degrees Right Flexion Active (degrees) 123 Extension Active (degrees) 0 Left Knee ROM WFL No Patient Position Supine Flexion Active (degrees) 82 Extension Active (degrees) 13 PT-OP-M Strength Start: 02/17/18 17:02 Freq: Status: Active Protocol: Document 02/16/18 09:45 DCW (Rec: 02/17/18 17:43 DCW [id number]) Knee Strength Knee Manual Muscle Testing Right Flexion (S2) 4 Good Extension (L3) 4+ Good+ Left Flexion (S2) 4- Good- Extension (L3) 3+ Fair+ PT-OP-Q Treatments Start: 02/17/18 17:02 Freq: Status: Active Protocol: Document 03/16/18 08:22 EA (Rec: 03/16/18 09:00 EA [id number]) Cardio Equipment Recumbent Stepper ([employer]) Duration (Minutes) 6 Seat Position 10 Gym Equipment Shuttle Recovery Unilateral Squats Resistance 50 Shuttle Recovery Platform Stable Reps/Time 15 X 2 Bilateral Squats Resistance 87# Shuttle Recovery Platform Stable Reps/Time 15 X 2 Therapeutic Exercises Supine Exercises 1 Supine Exercise Name hip flexor stretch in ina test position Straight Leg Raise Supine Exercise Name SLR Side left Resistance 2#AW Reps/Minutes x10 reps x 2 sets Short Arc Quad Supine Exercise Name FAQ Side left Resistance 4 lbs Reps/Minutes 2x 10 reps Quad Sets Supine Exercise Name QS Side left Reps/Minutes x10 reps x 2 sets Sitting Exercises Long Arc Quad Sitting Exercise Name Knee flexion Resistance Lv2 Reps/Minutes x 10 reps x 2 Standing Exercises HS stretch Standing Exercise Name 4 step and down Left leading Reps/Minutes x 10 reps x 2 sets Other Exercises 1 Other Exercise Name calf stretches Reps/Minutes x 30sh x 2 reps Comments the LULY Resisted Side-stepping Other Exercise Name Resisted side-stepping with squat Resistance Red Equipment Used T-band Reps/Minutes 4 lengths of bar PT-OP-R Modalities Start: 02/17/18 17:02 Freq: Status: Active Protocol: Document 03/16/18 08:22 EA (Rec: 03/16/18 09:00 EA [id number]) Hot Pack/Cold Pack Treatment Cold Pack Location left knee Patient Position Hooklying Treatment Duration (minutes) 15 Patient Tolerance Fair PT-OP-T Assessment and Plan Start: 02/17/18 17:02 Freq: Status: Active Protocol: Document 03/16/18 08:22 EA (Rec: 03/16/18 09:00 EA [id number]) Physical Therapy Assessment Assessment Summary Assessment Pt tolerated steps and down 4 with slight knee buckling at end reps however requires both rails support. Patient will Recommends to cont icing at home to decrease knee inflammation. Patient will cont. to benefit with current plan. Physical Therapy Plan Next Visit Focus/Plan Next Note Type Progress Note Next Visit Plan Continue progressing strengthening, stretches for the quad and iliopsoas
--- NOTE | 2018-03-19 13:56 | PT.OTN ---
Current Diagnoses Other tear of medial meniscus, current injury, left knee, initial encounter (03/19/18) Physical Therapy Treatment Note PT-OP-A Visit Information Start: 02/17/18 17:02 Freq: Status: Active Protocol: Document 03/19/18 12:14 EA (Rec: 03/19/18 12:18 EA [id number]) Out-Patient Physical Therapy Visit Information Visit Information Visit Type Treatment Note Visit Note pt wanted to ice at home today Visit Start Time 08:15 Visit Stop Time 09:00 Total Visit Minutes 40 Visit Number 10 Number of [employer]PER[employer] Visits 0 PT-OP-B Current Condition Start: 02/17/18 17:02 Freq: Status: Active Protocol: Document 02/16/18 09:45 DCW (Rec: 02/17/18 17:43 DCW [id number]) Current Condition History of Current Condition Onset Date 21 Days post-op Current Complaints Left knee pain, stiffness, gait difficulty s/p partial L meniscectomy History of Current Condition Pt is a 67 year old female presenting 21 days s/p L medial and lateral partial meniscectomies. 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 At that time, she felt something in her knee rip, and began suffering from pain, swelling, and was also experiencing her knee locking up. An MRI revealed a meniscus tear, and pt had her meniscectomy on 01/26/18. Pt reports that since surgery, she has been stiff, especially when weight-bearing, and she prefers to wear a brace in public for support, however notes that she knows it is not the best idea, because she'll get weaker. 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 Prior Treatments and Tests partial L medial and lateral meniscectomies Treatment Goals Patient/Caregiver Goals Pt wants to walk normally, and to be able to walk along the streets in town on her own without a fear of falling. Additionally, pt previously enjoyed swimming at the [facility], but is unable to go up or down the ladder currently due to her knee. Prior Functional Status Baseline Function- ADL's Modified Independent Baseline Function- Mobility Modified Independent Baseline Function- Gait Probing cane Current Functional Impairments (Reported) Functional Limitations- ADL's Pt unable to don/doff shoe on left foot Functional Limitations- Mobility/Gait Pt has increased pain and symptoms on stairs, using hands to crawl up them when at home. In public, pt reports that she goes sideways up stairs so she can use both hands on the same railing for support. Functional Limitations- Recreation/ Unable to climb up/down ladder Hobbies at [employer], unable to go line-dancing PT-OP-C Subjective Start: 02/17/18 17:02 Freq: Status: Active Protocol: Document 03/16/18 08:22 EA (Rec: 03/16/18 09:00 EA [id number]) OP-PT Subjective Patient Comments Patient Comments Pt reports went to the pool during the weekend and feels knees were better; states no increased in pain. Patient also reports that she is currently able to walk 2 blocks with her dogs; sharp pain and unsteady knees still occured but rarely. Pt states that he is okay to discharge from PT at this time and willing to cont. HEP. Patient Reported Progress Improving PT-OP-D Balance Start: 02/17/18 17:02 Freq: Status: Active Protocol: Document 02/16/18 09:45 DCW (Rec: 02/17/18 17:43 DCW [id number]) OP-PT Balance Assessment Sitting Balance Static Sitting Balance Ability Normal Dynamic Sitting Balance Ability Normal Standing Balance Static Standing Balance Ability Fair Dynamic Standing Balance Ability Poor Guzmán Fall Scale Copyright Permission Ramirez REYNOLDS, Ramirez RM, [place]. Development of a scale to identify the fall- prone patient. Can J Aging 1989;8;366-7. Emily Guzmán (2009). Preventing patient falls. (2nd ed). Sevier: Carty. PT-OP-F Manual Assessment Start: 02/17/18 17:02 Freq: Status: Active Protocol: Document 02/16/18 09:45 DCW (Rec: 02/17/18 17:43 DCW [id number]) Manual Assessments Joint Mobility Assessment Joint Mobility Assessment Immobility throughout left knee joint, mild joint effusion present. PT-OP-G Mobility & Gait Start: 02/17/18 17:02 Freq: Status: Active Protocol: Document 02/16/18 09:45 DCW (Rec: 02/17/18 17:43 DCW [id number]) OP Gait Assessment Gait Gait Assistance Required: Contact Guard Assist Distance (Feet) 40 Able to Maintain Weight Bearing Status Yes During Gait Assistive Devices Assistive Device None Orthotic/Prosthetic Devices or Brace: No Gait Deviations General Gait Pattern Antalgic Decreased Stride Length Decreased Feet Clearance Flexed Trunk Step-to Gait Factors Limiting Gait Function Factors Limiting Gait Function Decreased Strength Limited Range of Motion Pain Poor Balance Comments Gait Comments Pt gait presented with a slow, staggering/halting gait pattern with shortened right stride length to decrease stance time on left foot. Stair Climbing Evaluation Evaluation Level of Assist On Stairs Contact Guard Assistance Devices Stair Climbing Assistive Devices Left Railing Technique/Endurance Stair Climbing Direction Ascend and Descend Stair Climbing Technique Step to Step Number of Steps Climbed 3 Stair Climbing Set # Repetitions (reps) 1 Comments Stair Climbing Comments Pt uses both hands on left railing, ascending/descending sideways PT-OP-K Range of Motion Start: 02/17/18 17:02 Freq: Status: Active Protocol: Document 02/16/18 09:45 DCW (Rec: 02/17/18 17:43 DCW [id number]) Knee Goniometric Range of Motion Knee Measured in Degrees Right Flexion Active (degrees) 123 Extension Active (degrees) 0 Left Knee ROM WFL No Patient Position Supine Flexion Active (degrees) 82 Extension Active (degrees) 13 PT-OP-M Strength Start: 02/17/18 17:02 Freq: Status: Active Protocol: Document 02/16/18 09:45 DCW (Rec: 02/17/18 17:43 DCW [id number]) Knee Strength Knee Manual Muscle Testing Right Flexion (S2) 4 Good Extension (L3) 4+ Good+ Left Flexion (S2) 4- Good- Extension (L3) 3+ Fair+ PT-OP-Q Treatments Start: 02/17/18 17:02 Freq: Status: Active Protocol: Document 03/19/18 12:14 EA (Rec: 03/19/18 12:18 EA [id number]) Cardio Equipment Recumbent Stepper (Sci-Fit) Duration (Minutes) 6 Seat Position 9 Gym Equipment Shuttle Recovery Unilateral Squats Resistance 50 Shuttle Recovery Platform Stable Reps/Time 15 X 2 Bilateral Squats Resistance 100# Shuttle Recovery Platform Stable Reps/Time 15 X 2 Therapeutic Ball Reverse Leg Press Exercise Details Hip/knee flexion and extension /c feet on T-ball vs T-band resistance Ball Size/Color Red - 55 cm Lv 2 T-band Body Position Supine Therapeutic Exercises Supine Exercises 1 Supine Exercise Name hip flexor stretch in ina test position Comments HEP Straight Leg Raise Supine Exercise Name SLR Side left Resistance 2#AW Reps/Minutes x10 reps x 2 sets Comments HEP Short Arc Quad Supine Exercise Name FAQ Side left Resistance 6 lbs Reps/Minutes 2x 10 reps Quad Sets Supine Exercise Name QS Side left Reps/Minutes x10 reps x 2 sets Heel Slides Supine Exercise Name Heel Slides Side left Reps/Minutes 10 reps Comments HEP Sitting Exercises Long Arc Quad Sitting Exercise Name Knee flexion Resistance Lv2 Reps/Minutes x 10 reps x 2 Standing Exercises HS stretch Standing Exercise Name 4 step and down Left leading Reps/Minutes x 10 reps x 2 sets Hip Extension Standing Exercise Name Hip extension Side bilateral Resistance Lv 2 Equipment Used T-band Terminal Knee Extension Standing Exercise Name TKE Side left Resistance Lv 2 Equipment Used T-band Comments Band superior to knee d/t pain Other Exercises 1 Other Exercise Name calf stretches Reps/Minutes x 30sh x 2 reps Comments HEP Resisted Side-stepping Other Exercise Name Resisted side-stepping with squat Resistance Red Equipment Used T-band Reps/Minutes 4 lengths of bar Therapeutic Activity Therapeutic Activity 1 Name Ballrom dancing Comments Aury-aury, single step swing Self-Care/Home Management Treatment Education Patient Education Home Exercise Program Joint Protection Pain Management Safety PT-OP-R Modalities Start: 02/17/18 17:02 Freq: Status: Active Protocol: Document 03/19/18 13:52 EA (Rec: 03/19/18 13:52 EA [id number]) Hot Pack/Cold Pack Treatment Cold Pack Patient Position Hooklying Patient Tolerance Good PT-OP-T Assessment and Plan Start: 02/17/18 17:02 Freq: Status: Active Protocol: Document 03/19/18 12:14 EA (Rec: 03/19/18 12:18 EA [id number]) Physical Therapy Assessment Goals Six Impairment Stairs Short Term Goal (STG) Pt to ascend and descend stairs in a step-to gait pattern facing in the direction of movement with the use of one railing. STG Duration Goal met Five Impairment Gait Short Term Goal (STG) Pt to ambulate 200' with no antalgic gait STG Duration 03/18/18 Orthopedic Cast Specialist Goal (LTG) Pt to ambulate with left stride length = right stride length LTG Duration Goal met Four Impairment Range of Motion Halfway Goal (LTG) Pt left knee ROM to 5?-110? LTG Duration 04/18/18 Three Impairment Activity Tolerance Short Term Goal (STG) Pt to return to swimming at the [facility] with no difficulty entering or exiting the pool STG Duration 03/18/18 Halfway Goal (LTG) Pt to return to line-dancing with no increased symptoms LTG Duration Goal met Two Impairment ADL tolerance Short Term Goal (STG) Pt to put on shoes independently STG Duration Goal met One Impairment Pt does not have an appropriate home exercise program Short Term Goal (STG) Pt to be independent and compliant with appropriate HEP STG Duration Goal met Progress Towards Goals Progress Towards Goals Progressing Toward Goals Assessment Summary Assessment Patient exhibits improved functional mobility with almost near to previous level status. Patient is discharge today upon her request as she would cont. HEP. Patient understands safe indep exercises and other pre- caution. Physical Therapy Plan Discharge Physical Therapy Discharge Reasons Patient Request
== END 2018-03-27 13:44 ==
LOC: PHYS 08:15
PROVIDERS: PCP Internal Medicine; Visit Provider Orthopaedic Surgery
DX: S83.242A Other tear of medial meniscus, current injury, left knee, initial encounter (principal)
CPT/HCPCS: 97110; 97140; 97162; 97535

== ENCOUNTER → 2018-08-19 10:01 | Outpatient (CLI) | payer MEDICARE, SELFPAY ==
--- NOTE | 2018-08-19 | DI.MG.S_ITS ---
BILATERAL DIGITAL SCREENING MAMMOGRAM 3D/2D WITH CAD: 08/19/2018 CLINICAL: Routine screening. Family history of breast cancer. Comparison is made to exams dated: 08/14/2017 mammogram, 04/10/2015 mammogram - [facility], and 04/05/2014 mammogram - [facility]. There are scattered fibroglandular elements in both breasts. Current study was also evaluated with a Computer Aided Detection (CAD) system. There are mole markers on the right breast. There is a mole marker on the left breast. No significant masses, calcifications, or other findings are seen in either breast. There has been no significant interval change. IMPRESSION: NEGATIVE There is no mammographic evidence of malignancy. A 1 year screening mammogram is recommended. This exam was interpreted at Station ID: [id number]. NOTE: For mammograms, a report in lay terms will be sent to the patient. Approximately 15% of breast malignancies will not be visualized mammographically. In the management of a palpable breast mass, a negative mammogram must not discourage biopsy of a clinically suspicious lesion. Electronically Signed By: Du morrison/sonny:08/19/2018 18:06:16 letter sent: Normal Exam ACR BI-RADS Category 1: Negative [id number]
== END ==
PROVIDERS: PCP Internal Medicine; Visit Provider Internal Medicine
DX: Z12.31 Encounter for screening mammogram for malignant neoplasm of breast (principal); Z80.3 Family history of malignant neoplasm of breast
CPT/HCPCS: 77063; 77067

== ENCOUNTER 2019-01-31 11:54 | Emergency (ER) | payer MEDICARE, SELFPAY ==
[2019-01-31 12:01] VITALS: BP 145/64; PULSE 76; RESP 16; TEMP 37; O2SAT 99; BMI 26.6
[2019-01-31] MEDS: predniSONE 20 MG TABLET 60 MG PO (12:39)
[2019-01-31] MEDS: diphenhydrAMINE 25 MG TABLET 50 MG PO (12:39)
--- NOTE | 2019-01-31 12:48 | PC.NURSE ---
Pt arrived POV with . reports new onset allergic reaction. reports only new thing used was a new face cream 2 days ago. periorbital edema and rash to face and neck. No resp involvement. lungs are clear and denies SOB. no apparent tongue swelling. placed in room [address] Dugan made aware. PO meds given per MAR. resting in bed. Pt is blind at baseline. at side.
--- NOTE | 2019-01-31 13:13 | ED.ALLEREA ---
HPI - Allergic Reaction General Chief complaint: Allergic Reaction Stated complaint: ALLERGIC REACTION TO FACE CREAM Time Seen by Provider: 01/31/19 12:01 Source: patient Mode of arrival: Ambulatory Limitations: other History of Present Illness HPI narrative: Patient complains of swelling around her eyes after using a facial cleansing cream. Patient states she has never use the cream before, and has never had an allergic reaction to any sort of topical agent before. Patient states that the reaction began a couple of days ago, and patient has been taking Benadryl, but her eyes seemed to have gotten worse today. She denies any swelling of the mouth or throat. no other complaints at this time. MD complaint: allergic reaction Related Data Home Medications Medication Instructions Recorded Confirmed acetaminophen 500 mg PO QID #0 02/17/16 acyclovir [Zovirax] 1 liliana TP #0 02/17/16 alendronate [Fosamax] 70 mg PO QWEEK #0 02/17/16 [id number] 1 cap PO PRN PRN #0 02/17/16 calcium citrate-vitamin D3 1 tab PO #0 02/17/16 [Citracal + D Maximum] capsaicin [Theragen] 1 liliana TOPICAL #0 02/17/16 hydrocodone-acetaminophen 1 tab PO Q6HP PRN #0 02/17/16 01/21/18 ibuprofen 800 mg PO TIDP PRN #0 02/17/16 lidocaine HCl 1 liliana TOPICAL #0 02/17/16 valacyclovir 500 mg PO #0 02/17/16 alprazolam [Xanax] 0.5 mg PO BID 09/16/17 01/21/18 clopidogrel [Plavix] 75 mg PO DAILY 09/16/17 01/26/18 cyclosporine [Restasis] 1 drp EYE-BOTH DAILY 09/16/17 01/21/18 esomeprazole magnesium [Nexium] 40 mg PO DAILY 09/16/17 01/21/18 levothyroxine [Synthroid] 137 mcg PO DAILY 09/16/17 01/21/18 verapamil 180 mg PO DAILY 09/16/17 01/21/18 albuterol sulfate 2 puff INHALATION Q4H PRN 01/21/18 01/21/18 atorvastatin 40 mg PO DAILY 01/21/18 01/21/18 cholecalciferol (vitamin D3) 2,000 units 01/21/18 [Vitamin D3] clotrimazole-betamethasone 1 applic TOPICAL BID 01/21/18 01/21/18 doxycycline hyclate 100 mg PO Q12H 01/21/18 01/21/18 nystatin 01/21/18 omeprazole 40 mg PO DAILY 01/21/18 01/21/18 terbinafine HCl 250 mg PO DAILY 01/21/18 01/21/18 venlafaxine 37.5 mg PO DAILY 01/21/18 01/21/18 Previous Rx's Medication Instructions Recorded hydrocodone-acetaminophen [Vicodin] 1 tab PO Q4-6H PRN #30 tab 01/26/18 famotidine [Pepcid] 20 mg PO DAILY #3 tab 01/31/19 prednisone 60 mg PO DAILY #3 tab 01/31/19 Allergies Allergy/AdvReac Type Severity Reaction Status Date / Time erythromycin base Allergy Mild STOMACH Verified 01/26/18 15:12 [ERYTHROMYCIN BASE] UPSET doxycycline AdvReac Unknown Dizziness, Verified 01/21/18 13:27 headache levofloxacin AdvReac Unknown Tendonitis Verified 01/21/18 13:27 Review of Systems Constitutional Constitutional: Denies chills, Denies fatigue, Denies fever(s), Denies frequent falls, Denies lethargy and Denies weakness Eyes Eyes: Denies change in vision, Denies eye discharge, Denies irritation and Denies loss of vision Comments: Periorbital swelling ENT Ears, Nose, Mouth, and Throat: Denies change in voice, Denies dizziness, Denies neck pain, Denies sore throat and Denies throat swelling Cardiovascular Cardiovascular: Denies chest pain, Denies irregular heart rhythm, Denies lightheadedness, Denies palpitations, Denies dyspnea, Denies dyspnea on exertion and Denies orthopnea Respiratory Respiratory: Denies cough, Denies dyspnea, Denies dyspnea on exertion and Denies wheezing Gastrointestinal Gastrointestinal: Denies abdominal pain, Denies change in bowel habits, Denies diarrhea, Denies nausea and Denies vomiting Genitourinary Genitourinary: Denies hematuria, Denies flank pain, Denies urinary incontinence and Denies urinary urgency Musculoskeletal Musculoskeletal: Denies back pain, Denies muscle weakness, Denies neck pain, Denies numbness and Denies tingling Integumentary/Breasts Skin/Breast: Denies pruritus, Denies erythema, Denies rash and Denies wounds Neurologic Neurologic: Denies behavioral changes, Denies confusion, Denies dizziness, Denies frequent falls, Denies loss of vision, Denies numbness, Denies tingling and Denies weakness Psychiatric Psychiatric: Denies anxiety, Denies behavioral changes, Denies confusion, Denies depression, Denies homicidal ideation and Denies suicidal ideation Endocrine Endocrine: Denies fatigue, Denies flushing and Denies palpitations Hematologic/Lymphatic Hematologic/Lymphatic: Denies easy bruising Allergic/Immunologic Allergic/Immunologic: Denies urticaria, Denies throat swelling and Denies wheezing Patient History Medical History Acute medial meniscus tear of left knee (Acute) Age-related osteoporosis without current pathological fracture (Acute) Anxiety disorder, unspecified (Acute) Asthma (Acute) Brain tumor (Acute) Candidiasis, unspecified (Acute) Cellulitis of groin (Acute ~09/2016) Chest pressure (Acute) Dry eye syndrome of unspecified lacrimal gland (Acute) DVT of axillary vein, acute bilateral (Acute ~2013) Essential hypertension (Acute) Failed total hip arthroplasty (Acute) GERD with esophagitis (Acute) Glaucoma, right eye (Acute) Herpes simplex (Acute) History of chest pain (Acute) History of colitis (Acute) History of concussion (Acute) Hypertension (Acute) Hypothyroidism (Acute) Keratoconjunctivitis sicca not specified as Sjogren's (Acute) Knee pain, left (Acute) Legal blindness, as defined in [place] (Acute) Major depressive disorder, single episode (Acute) Malignant neoplasm of colon, unspecified (Acute) Migraine with aura, not intractable, without status migrainosus (Acute) Mitral valve prolapse (Acute) Obesity (Acute) Osteoarthritis (Acute) Osteopenia (Acute) Other cerebrovascular disease (Acute) Other pneumonia, unspecified organism (Acute) Other specified disorders of eustachian tube, bilateral (Acute) Palpitations (Acute) Poor balance (Acute) Retinal tear of left eye (Acute) Rotator cuff tear arthropathy of left shoulder (Acute) Sinus sissy-tachy syndrome (Acute) Stroke (Acute ~07/13/14) Tinea cruris (Acute) Viral warts, unspecified (Acute) Surgical History History of cataract removal with insertion of prosthetic lens History of colonoscopy (Acute) History of foot surgery (Acute) History of thyroidectomy History of tonsillectomy S/P right knee arthroscopy (Acute) Status post dilation and curettage Status post knee surgery Status post laparoscopy Status post tubal ligation Social History household members: spouse Exam Initial Vital Signs Initial Vital Signs: Vital Signs Temperature 98.6 F 01/31/19 12:01 Pulse Rate 76 01/31/19 12:01 Respiratory Rate 16 01/31/19 12:01 Blood Pressure 145/64 H 01/31/19 12:01 Pulse Oximetry 99 01/31/19 12:01 Const General: cooperative and well developed Nutritional Appearance: well nourished Orientation: alert, awake, oriented x3 and not confused HENMT Head: normocephalic, atraumatic and other (Moderate periorbital edema.) Ears: external ears normal and TM's normal bilaterally Nose: external nose normal and No nasal discharge Face and sinus: sinuses nontender, face symmetric, no sinus tenderness and No dry mucous membranes Mouth: oral mucosae normal, moist mucous membranes and other (No swelling of lips or oropharyngeal structures.) Teeth and gingiva: dentition normal Throat: tonsils normal and uvula midline Eyes General: appearance normal, both eyes and all related structures Eyelids: eyelids normal Conjunctivae: conjunctivae normal Sclera: sclerae normal Pupils: PERRL EOM: EOM intact bilaterally Neck Neck: normal visual inspection, trachea midline, No lymphadenopathy, No midline deformity and No JVD Lymphatic: No lymphedema Chest Chest: normal inspection of the chest Resp Effort & Inspection: normal respiratory effort, able to speak in complete sentences, no respiratory distress and no use of accessory muscles Auscultation: clear to auscultation bilaterally, no rales, no rhonchi and no wheezes Cardio Rate: regular rate Rhythm: regular rhythm Heart Sounds: no click, no gallops, no murmurs and no rubs Pulses: normal peripheral pulses GI Inspection: non-distended Palpation: soft, no hepatosplenomegaly, No guarding, No pulsatile mass and No tender Auscultation: normal bowel sounds Back/Spine/Pelvis Back: No CVA tenderness Cervical Spine: cervical ROM normal and No pain with cervical ROM Thoracic/Lumbar Spine: thoracic and lumbar spine normal to inspection Skin General: no rashes or lesions noted, No jaundice and No petechiae Neuro General: alert, oriented x3, gait normal and no focal motor deficits Speech: speech normal Extrem General: full ROM, no clubbing, cyanosis or edema, no pedal edema and no calf tenderness Psych Appearance: well kempt Mental Status: mental status grossly normal Attitude: cooperative Thought Content: normal and suicidality Judgment: judgment good Course Course Course Narrative: Patient was treated symptomatically in the emergency department with Benadryl, prednisone, and ranitidine. There was no evidence of anaphylaxis at this time. I discussed home management of the symptoms, as well as the usual indications for return. Orders Ordered: Discontinued Medications Diphenhydramine HCl (Benadryl) 50 mg PO NOW ONE Stop: 01/31/19 12:27 Last Admin: 01/31/19 12:39 Dose: 50 mg Documented by: [facility] Prednisone (Deltasone) 60 mg PO NOW ONE Stop: 01/31/19 12:27 Last Admin: 01/31/19 12:39 Dose: 60 mg Documented by: [facility] Ranitidine HCl (Zantac) 150 mg PO NOW ONE Stop: 01/31/19 12:27 Last Admin: 01/31/19 12:40 Dose: 150 mg Documented by: [facility] Vital Signs Vital signs: Vital Signs - 8 hr 01/31/19 12:01 Temperature 98.6 F Pulse Rate 76 Respiratory Rate 16 Blood Pressure 145/64 H Pulse Oximetry 99 MDM - Allergic Reaction Medical Records Attestation: I reviewed the patient's medical records. Discharge Plan Departure Patient Disposition: Home Clinical Impression: Allergic reaction Qualifiers: Encounter type: initial encounter Qualified Code(s): T78.40XA - Allergy, unspecified, initial encounter Discharge Date/Time: 01/31/19 13:43 Instructions: DI for General Allergic Reactions Activity Restrictions/Additional Instructions: You may continue the Benadryl until your reaction has settled down. Please take the 3 day course of prednisone and Pepcid, as well to help minimize your symptoms. Please avoid exposure to anything to which you think you may be allergic. Prescriptions: New prednisone 20 mg tablet 60 mg PO DAILY Qty: 3 RF: 0 famotidine [Pepcid] 20 mg tablet 20 mg PO DAILY Qty: 3 RF: 0 No Action acetaminophen 500 MG tablet 500 mg PO QID Qty: 0 RF: 0 [id number]-grraasdlmmkiy-njis 1 EACH capsule 1 cap PO PRN PRNQty: 0 RF: 0 alendronate [Fosamax] 70 MG tablet 70 mg PO QWEEK Qty: 0 RF: 0 hydrocodone-acetaminophen 10 MG/325 MG tablet 1 tab PO Q6HP PRN (Reason: Pain) Qty: 0 RF: 0 capsaicin [Theragen] 0.025 % cream 1 liliana Topical Qty: 0 RF: 0 calcium citrate-vitamin D3 [Citracal + D Maximum] 1,500 MG/250 IU tablet 1 tab PO Qty: 0 RF: 0 ibuprofen 800 MG tablet 800 mg PO TIDP PRN (Reason: Pain) Qty: 0 RF: 0 lidocaine HCl 30 ML jelly 1 liliana Topical Qty: 0 RF: 0 valacyclovir 500 MG tablet 500 mg PO Qty: 0 RF: 0 acyclovir [Zovirax] 5 % cream 1 liliana TP Qty: 0 RF: 0 levothyroxine [Synthroid] 137 mcg Tablet 137 mcg PO DAILY RF: 0 verapamil 180 mg Tablet Extended Release 180 mg PO DAILY RF: 0 clopidogrel [Plavix] 75 mg Tablet 75 mg PO DAILY RF: 0 alprazolam [Xanax] 0.5 mg Tablet 0.5 mg PO BID RF: 0 esomeprazole magnesium [Nexium] 40 mg Capsule,Delayed Release(Dr/Ec) 40 mg PO DAILY RF: 0 cyclosporine [Restasis] 0.05 % Dropperette 1 drp EYE-BOTH DAILY RF: 0 atorvastatin 40 mg Tablet 40 mg PO DAILY RF: 0 venlafaxine 37.5 mg Capsule,Extended Release 24hr 37.5 mg PO DAILY RF: 0 doxycycline hyclate 100 mg Capsule 100 mg PO Q12H RF: 0 omeprazole 40 mg Capsule,Delayed Release(Dr/Ec) 40 mg PO DAILY RF: 0 terbinafine HCl 250 mg Tablet 250 mg PO DAILY RF: 0 clotrimazole-betamethasone 1-0.05 % Cream 1 applic TOPICAL BID RF: 0 albuterol sulfate 90 mcg/actuation Hfa Aerosol Inhaler 2 puff INHALATION Q4H PRN (Reason: Wheezing) RF: 0 nystatin 500,000 unit Tablet RF: 0 cholecalciferol (vitamin D3) [Vitamin D3] 2,000 unit Capsule 2,000 units RF: 0 hydrocodone-acetaminophen [Vicodin] 5-300 mg tablet 1 tab PO Q4-6H PRN (Reason: pain) Qty: 30 RF: 0 Referrals: Mazin Gunter MD [Primary Care Provider] -
[2019-01-31 13:18] VITALS: BP 137/76; PULSE 60; O2SAT 97
== END 2019-01-31 13:43 | disposition home or self-care (01) ==
PROVIDERS: Emergency Provider Emergency Medicine; PCP Internal Medicine
DX: T78.40XA Allergy, unspecified, initial encounter (principal)
CPT/HCPCS: 99283

== ENCOUNTER 2019-03-17 09:58 | Day surgery (SDC) | payer MEDICARE, SELFPAY ==
[2019-03-17] VITALS (8 sets, daily range): BP systolic 95–133; BP diastolic 55–76; PULSE 65–80; RESP 14–16; TEMP 36.2–36.8; O2SAT 92–97; BMI 32.7
--- NOTE | 2019-03-17 | PATH_ITS ---
[facility] Accession Number: [id number] . 01 Material submitted: . PART A: colon - ULCERATING MUCOSA ASCENDING COLON PART B: sigmoid colon - SIGMOID COLON POLYPECTOMY PART C: colon - RECTAL SIGMOID POLYPECTOMY X2 . 02 Diagnosis: A. Ulcerating Mucosa Ascending Colon, Biopsy: Ulcerated colonic mucosa. Please see comment. Negative for granulomas, dysplasia and malignancy. . B. Sigmoid Colon, Polyp, Biopsy: Tubular adenoma. . C. Rectosigmoid, Polyps x2, Biopsies: Hyperplastic polyps. [facility] 03/18/2019 1137 Local . 02 Comment: Part A: The ascending colon biopsy shows ulcerated colonic mucosa with a denuded surface epithelium and absent crypts in the area of ulceration. No obvious viral cytopathic effects or parasitic organisms are identified. The adjacent colonic mucosa shows no features of active, chronic or microscopic colitis as well as no evidence of acute ischemia. Immunohistochemical stains for CMV, HSV and adenovirus are pending and the results will be reported as an addendum. The differential diagnosis includes ischemia, infection, medication-related mucosal injury, diverticular disease-associated colitis and idiopathic inflammatory bowel disease. . 02 Electronically signed: . Yael Davis MD, Pathologist NPI- [id number] . 01 Gross description: . Part A: ULCERATING MUCOSA ASCENDING COLON: Received in formalin are multiple fragment(s) of fink, soft tissue measuring 0.1 x 0.1 x 0.1 cm to 0.2 x 0.2 x 0.2 cm submitted entirely in 1 cassette(s) Part B: SIGMOID COLON POLYPECTOMY: Received in formalin is 1 fragment(s) of fink, soft tissue measuring 0.2 x 0.2 x 0.2 cm submitted entirely in 1 cassette(s) Part C: RECTAL SIGMOID POLYPECTOMY X2: Received in formalin are 2 fragment(s) of fink, soft tissue measuring 0.1 x 0.1 x 0.1 cm to 0.2 x 0.2 x 0.1 cm submitted entirely in 1 cassette(s) /[facility] 03/17/20197 Local . 02 Pathologist provided ICD-10: K52.9, D12.5, K62.1 . 02 CPT . 021620, 428343, 259887, [id number], [id number], [id number] Performed at: 01 [facility] [address] [place] [id number] MD Per Choudhury MD Phone: [phone] Performed at: 02 [facility] [place] [address] [place] [id number] MD Yael Davis MD Phone: [phone]
--- NOTE | 2019-03-17 08:24 | PM.HP.1 ---
History of Present Illness History of Present Illness Date Patient Seen: 03/17/19 Chief complaint: [phone] Narrative: Duplicate entry. Patient History Medical History Acute medial meniscus tear of left knee (Acute) Age-related osteoporosis without current pathological fracture (Acute) Anxiety disorder, unspecified (Acute) Asthma (Acute) Brain tumor (Acute) Candidiasis, unspecified (Acute) Cellulitis of groin (Acute ~09/2016) Chest pressure (Acute) Dry eye syndrome of unspecified lacrimal gland (Acute) DVT of axillary vein, acute bilateral (Acute ~2013) Essential hypertension (Acute) Failed total hip arthroplasty (Acute) GERD with esophagitis (Acute) Glaucoma, right eye (Acute) Herpes simplex (Acute) History of chest pain (Acute) History of colitis (Acute) History of concussion (Acute) Hypertension (Acute) Hypothyroidism (Acute) Keratoconjunctivitis sicca not specified as Sjogren's (Acute) Knee pain, left (Acute) Legal blindness, as defined in [place] (Acute) Major depressive disorder, single episode (Acute) Malignant neoplasm of colon, unspecified (Acute) Migraine with aura, not intractable, without status migrainosus (Acute) Mitral valve prolapse (Acute) Obesity (Acute) Osteoarthritis (Acute) Osteopenia (Acute) Other cerebrovascular disease (Acute) Other pneumonia, unspecified organism (Acute) Other specified disorders of eustachian tube, bilateral (Acute) Palpitations (Acute) Poor balance (Acute) Retinal tear of left eye (Acute) Rotator cuff tear arthropathy of left shoulder (Acute) Sinus sissy-tachy syndrome (Acute) Stroke (Acute ~07/13/14) Tinea cruris (Acute) Viral warts, unspecified (Acute) Surgical History History of cataract removal with insertion of prosthetic lens History of colonoscopy (Acute) History of foot surgery (Acute) History of thyroidectomy History of tonsillectomy S/P right knee arthroscopy (Acute) Status post dilation and curettage Status post knee surgery Status post laparoscopy Status post tubal ligation Family & Social History Social History: household members spouse Meds Home Medications and Allergies Home Medications Medication Instructions Recorded Confirmed Type acetaminophen 500 mg PO QID #0 02/17/16 03/17/19 History acyclovir [Zovirax] 1 liliana TP TID PRN #0 02/17/16 03/17/19 History ibuprofen 800 mg PO TIDP PRN #0 02/17/16 03/17/19 History lidocaine HCl 1 liliana TOPICAL DAILY #0 02/17/16 03/17/19 History valacyclovir 500 mg PO BID #0 02/17/16 03/17/19 History alprazolam [Xanax] 0.5 mg PO DAILY 09/16/17 03/17/19 History clopidogrel [Plavix] 75 mg PO DAILY 09/16/17 03/17/19 History cyclosporine [Restasis] 1 drp EYE-BOTH DAILY 09/16/17 03/17/19 History esomeprazole magnesium [Nexium] 40 mg PO DAILY 09/16/17 03/17/19 History levothyroxine [Synthroid] 137 mcg PO DAILY 09/16/17 03/17/19 History verapamil 180 mg PO DAILY 09/16/17 03/17/19 History albuterol sulfate 2 puff INHALATION Q4H PRN 01/21/18 03/17/19 History atorvastatin 40 mg PO DAILY 01/21/18 03/17/19 History cholecalciferol (vitamin D3) 2,000 units PO DAILY 01/21/18 03/17/19 History [Vitamin D3] venlafaxine 37.5 mg PO DAILY 01/21/18 03/17/19 History Allergies Allergy/AdvReac Type Severity Reaction Status Date / Time erythromycin base Allergy Mild STOMACH Verified 01/26/18 15:12 [ERYTHROMYCIN BASE] UPSET doxycycline AdvReac Unknown Dizziness, Verified 01/21/18 13:27 headache levofloxacin AdvReac Unknown Tendonitis Verified 01/21/18 13:27 Assessment & Plan Assessment & Plan narrative: Duplicate entry.
--- NOTE | 2019-03-17 08:25 | PM.HP.1 ---
History of Present Illness History of Present Illness Chief complaint: [phone] [phone] Narrative: Patient presented for Colonoscopy. Patient has a personal history of colon cancer which was found contained within a colon polyp in the rectosigmoid junction. She is due for surveillance colonoscopy. She opted to have surgical resection. She does take Plavix. She was last seen in the office on January 19, 2019. Patient History Medical History Acute medial meniscus tear of left knee (Acute) Age-related osteoporosis without current pathological fracture (Acute) Anxiety disorder, unspecified (Acute) Asthma (Acute) Brain tumor (Acute) Candidiasis, unspecified (Acute) Cellulitis of groin (Acute ~09/2016) Chest pressure (Acute) Dry eye syndrome of unspecified lacrimal gland (Acute) DVT of axillary vein, acute bilateral (Acute ~2013) Essential hypertension (Acute) Failed total hip arthroplasty (Acute) GERD with esophagitis (Acute) Glaucoma, right eye (Acute) Herpes simplex (Acute) History of chest pain (Acute) History of colitis (Acute) History of concussion (Acute) Hypertension (Acute) Hypothyroidism (Acute) Keratoconjunctivitis sicca not specified as Sjogren's (Acute) Knee pain, left (Acute) Legal blindness, as defined in [place] (Acute) Major depressive disorder, single episode (Acute) Malignant neoplasm of colon, unspecified (Acute) Migraine with aura, not intractable, without status migrainosus (Acute) Mitral valve prolapse (Acute) Obesity (Acute) Osteoarthritis (Acute) Osteopenia (Acute) Other cerebrovascular disease (Acute) Other pneumonia, unspecified organism (Acute) Other specified disorders of eustachian tube, bilateral (Acute) Palpitations (Acute) Poor balance (Acute) Retinal tear of left eye (Acute) Rotator cuff tear arthropathy of left shoulder (Acute) Sinus sissy-tachy syndrome (Acute) Stroke (Acute ~07/13/14) Tinea cruris (Acute) Viral warts, unspecified (Acute) Surgical History History of cataract removal with insertion of prosthetic lens History of colonoscopy (Acute) History of foot surgery (Acute) History of thyroidectomy History of tonsillectomy S/P right knee arthroscopy (Acute) Status post dilation and curettage Status post knee surgery Status post laparoscopy Status post tubal ligation Family & Social History Social History: household members spouse Meds Home Medications and Allergies Home Medications Medication Instructions Recorded Confirmed Type acetaminophen 500 mg PO QID #0 02/17/16 03/17/19 History acyclovir [Zovirax] 1 liliana TP TID PRN #0 02/17/16 03/17/19 History ibuprofen 800 mg PO TIDP PRN #0 02/17/16 03/17/19 History lidocaine HCl 1 liliana TOPICAL DAILY #0 02/17/16 03/17/19 History valacyclovir 500 mg PO BID #0 02/17/16 03/17/19 History alprazolam [Xanax] 0.5 mg PO DAILY 09/16/17 03/17/19 History clopidogrel [Plavix] 75 mg PO DAILY 09/16/17 03/17/19 History cyclosporine [Restasis] 1 drp EYE-BOTH DAILY 09/16/17 03/17/19 History esomeprazole magnesium [Nexium] 40 mg PO DAILY 09/16/17 03/17/19 History levothyroxine [Synthroid] 137 mcg PO DAILY 09/16/17 03/17/19 History verapamil 180 mg PO DAILY 09/16/17 03/17/19 History albuterol sulfate 2 puff INHALATION Q4H PRN 01/21/18 03/17/19 History atorvastatin 40 mg PO DAILY 01/21/18 03/17/19 History cholecalciferol (vitamin D3) 2,000 units PO DAILY 01/21/18 03/17/19 History [Vitamin D3] venlafaxine 37.5 mg PO DAILY 01/21/18 03/17/19 History Allergies Allergy/AdvReac Type Severity Reaction Status Date / Time erythromycin base Allergy Mild STOMACH Verified 01/26/18 15:12 [ERYTHROMYCIN BASE] UPSET doxycycline AdvReac Unknown Dizziness, Verified 01/21/18 13:27 headache levofloxacin AdvReac Unknown Tendonitis Verified 01/21/18 13:27 Review of Systems Review of Systems Narrative: Patient is sight impaired. ROS Unobtainable: All systems reviewed & are unremarkable except as noted in HPI and below Exam Const General: cooperative, healthy appearing and comfortable Orientation: alert and awake Resp Effort & Inspection: normal respiratory effort and able to speak in complete sentences Auscultation: clear to auscultation bilaterally Cardio Rate: regular rate Rhythm: regular rhythm Heart Sounds: S1 normal and S2 normal GI Palpation: soft and No tender Auscultation: normal bowel sounds Extrem Right lower extremity: no edema Left lower extremity: no edema
[2019-03-17] MEDS: SODIUM CHLORIDE 0.9% 1,000 ML 70 ML IV (11:17)
[2019-03-17] MEDS: MIDAZOLAM 5 MG/5 ML VIAL IV (12:25)
[2019-03-17] MEDS: fentaNYL 250 MCG/5 ML INJ IV (12:26)
--- NOTE | 2019-03-17 12:35 | PM.OP.ENDO ---
Operative Date/Time/Diagnoses Date of procedure: 03/17/19 Time of procedure: 12:04 Procedure Notes Procedure in detail: Surgeon: Luly Hebert DO Procedure: Colonoscopy with biopsy and polypectomy Preoperative diagnosis: 1. Personal history of colon cancer Postoperative diagnosis: 1. Ulcerated mucosa in the ascending colon suspicious for mild ischemic colitis 2. Post polypectomy scars noted in the sigmoid and rectosigmoid colon 3. Sigmoid polyp 2mm 4. Two rectosigmoid polyps 2-3 mm in size Medications: Conscious sedation using 5 mg IV of Midazolam and 150 mcg IV of Fentanyl Preanesthesia Assessment An H and P was performed/updated and the Px?s ASA class is 2. The procedure was discussed in detail with the patient. The potential risks and complications including infection, bleeding, missed lesions, perforation, need for surgery in case of perforation, prolonged hospital stay, and were explained. A brief question and answer period was allotted and once all questions were answered, informed consent was obtained. The patient was brought back to the procedure room and placed on standard monitoring. The patient?s vital signs were monitored continuously throughout the entire procedure. Prior to starting, a timeout was performed to confirm the patient?s identity, allergies, medications, and procedure. Patient does take Plavix, last taken 7 days ago. Procedure in detail The patient was placed in left lateral decubitus position and once adequate sedation was obtained a JB was performed. The digital rectal examination did not reveal any palpable lesions. The tip of the colonoscope was placed in the anal canal and advanced without difficulty all the way to the cecum which was identified by the appendiceal orifice and the ileocecal valve. Careful examination of all arrington of the colon was performed with irrigation of any residual stool. Area of ulceration in a linear pattern was noted in the ascending colon suspicious for mild ischemic colitis -biopsied Post polypectomy scar noted in the sigmoid, nearby small polyp was identified measuring 2 mm, removed with Jumbo forceps The rectosigmoid junction post polypectomy scar noted with 2 cm by measuring 2-3 mm size. Despite multiple passes through this area tattoo was not appreciated. The patient tolerated the procedure well and will be brought back to the recovery area to be discharged once criteria are met. The prep was judged to be adequate the multiple seeds clogged the scope, copious lavage was required to be able to identify polyps greater than 5 mm. The withdrawal time was 13min. The total physician intraservice time was 25min. Complications There were no complications and estimated blood loss was minimal. Recommendations: Resume previous diet Continue outPx medications Follow up pathology results Repeat colonoscopy after pathology results are reviewed Okay to restart Plavix tomorrow An emergency contact number was given to the patient for any complications related to the procedure
== END 2019-03-17 13:51 | disposition home or self-care (01) ==
PROVIDERS: PCP Internal Medicine; Visit Provider Student in an Organized Health Care Education/Training Program
PROC: 0DJD8ZZ Inspection of Lower Intestinal Tract, Via Natural or Artificial Opening Endoscopic (ICD-10-PCS; CPT 45378; principal; 2019-03-17 11:00)
DX: Z12.11 Encounter for screening for malignant neoplasm of colon (principal); Z85.038 Personal history of other malignant neoplasm of large intestine; D12.5 Benign neoplasm of sigmoid colon; K52.9 Noninfective gastroenteritis and colitis, unspecified; K62.1 Rectal polyp
CPT/HCPCS: 45380; J2250; J3010

== ENCOUNTER → 2019-06-16 18:58 | Outpatient (ROUT) | payer MEDICARE, SELFPAY ==
[2019-06-16 19:04] LABS: Add Manual Diff / Slide Review NO; Basophils Absolute Auto 0 /uL (0-100); Basophils Percent Auto 0.6 % (0-2); Eosinophils Absolute Auto 100 /uL (0-450); Eosinophils Percent Auto 1.2 % (2-4); Hematocrit 43.6 % (36-46); Hemoglobin 14.9 g/dL (12.0-16.0); Lymphocytes Absolute Auto 1600 /uL (1100-4500); Lymphocytes Percent Auto 32.4 % (25-40); Mean Corpuscular HGB Conc 34.3 % (30-36); Mean Corpuscular Hemoglobin 30.4 PG (26-34); Mean Corpuscular Volume 88.7 fL (80-100); Monocytes Absolute Auto 400 /uL (0-900); Monocytes Percent Auto 7.9 % (3-14); Neutrophils Absolute Auto 2800 /uL (1500-7000); Neutrophils Percent Auto 57.9 % (50-75); Platelet Count 230 X10^3/uL (150-400); Red Blood Cell Count 4.91 X10^6/uL (4.0-5.2); Red Cell Distribution Width 13.2 % (11.6-14.8); White Blood Cell Count 4.8 X10^3/uL (4.5-11.0)
[2019-06-16 19:14] LABS: Alanine Aminotransferase 24 IU/L (<35); Albumin 4.2 g/dL (3.5-5.0); Albumin Globulin Ratio 1.7 (1.0-2.8); Alkaline Phosphatase 71 U/L (38-126); Aspartate Aminotransferase 24 IU/L (14-36); Bilirubin Total 0.6 mg/dL (0.2-1.3); Blood Urea Nitrogen 21 mg/dL (7-17); Calcium 9.5 mg/dL (8.4-10.2); Carbon Dioxide 26 mmol/L (22-32); Chloride 106 mmol/L (98-107); Cholesterol 110 mg/dL (140-199); Estimated Glomerular Filt Rate > 60.0 mL/min (>60); Globulin 2.5 g/dL (1.7-4.1); Glucose 87 mg/dL (80-110); HDL Cholesterol 43 mg/dL (40-60); HEMOLYSIS < 15 (0-50); LDL Cholesterol Calculated 57 mg/dL (<100); Potassium 4.2 mmol/L (3.4-5.1); Sodium 142 mmol/L (137-145); Total Protein 6.7 g/dL (6.3-8.2); Triglycerides 49 mg/dL (35-150)
[2019-06-16 19:44] LABS: TSH w/ Reflex to FT4 0.06 uIU/mL (0.47-4.68)
== END ==
PROVIDERS: PCP Internal Medicine; Visit Provider Internal Medicine
DX: I67.89 Other cerebrovascular disease (principal); E03.9 Hypothyroidism, unspecified; E78.2 Mixed hyperlipidemia
CPT/HCPCS: 80053; 80061; 84439; 84443; 85025